=== PATIENT | female | born 1975 | race Caucasian/White ===

== ENCOUNTER → 2017-10-22 | Outpatient (CLI) | payer OTHER ==
--- NOTE | 2017-10-22 12:53 | MR ---
EXAMINATION TYPE: MR lumbar spine wo con DATE OF EXAM: 10/22/2017 COMPARISON: NONE HISTORY: Intervertebral disc displacement, history of lumbosacral disc herniation L4-L5 TECHNIQUE: Multiplanar, multisequence images of the lumbar spine were acquired. FINDINGS: Lumbar vertebral bodies maintain normal vertebral body heights and alignment. Bone marrow signal is w ithin normal limits. Conus medullaris is unremarkable terminating at L1. L1-L2: There is a right foraminal annular tear and small broad-based disc bulge without neural forami nal narrowing or spinal canal stenosis. L2-L3: There is a right eccentric broad-based disc bulge without significant neural foraminal narrowi ng or spinal canal stenosis. L3-L4: There is a far lateral left disc herniation past the lateral recess minimally narrowing the le ft neural foramen. Mild facet arthropathy and ligamentum flavum buckling is also seen. No spinal americo l stenosis or right neural foraminal narrowing. L4-L5: There is a broad-based small disc bulge and mild facet arthropathy with ligamentum flavum bain ling resulting in minimal bilateral neural foraminal narrowing. No spinal canal stenosis. L5-S1: There is a right eccentric broad-based disc bulge with mild facet arthropathy. No significant spinal canal stenosis or neural foraminal narrowing is seen. Lumbar segments are intact. No paraspinal masses are identified. Conus medullaris has a normal appe arance. IMPRESSION: 1. Far lateral left disc herniation at L3-4 minimally narrowing the left neural foramen. 2. Mild multilevel degenerative disc disease resulting in minimal bilateral neural foraminal narrowin g at L4-L5. No spinal canal stenosis throughout the lumbar spine. No disc herniation seen at this lev el on the current exam. 3. Small right foraminal annular tear at L1-L2. No spinal canal stenosis or neural foraminal narrowin g.
== END | disposition home or self-care (01) ==
LOC: RADMRIMAIN 10:55
PROVIDERS: ATTEND Physician Assistant
DX: M51.27 Other intervertebral disc displacement, lumbosacral region (principal); M51.36 Other intervertebral disc degeneration, lumbar region
CPT/HCPCS: 72148

== ENCOUNTER 2017-11-01 14:48 | Emergency (ER) | payer OTHER ==
[2017-11-01] MEDS ORDERED: LORazepam 1 MG TAB PO STA (16:10)
[2017-11-01] MEDS ORDERED: HYDROmorphone 2 MG/ML 1 ML SYRINGE IM STA (16:51)
--- NOTE | 2017-11-01 17:02 | ED ---
General Adult HPI - General Chief complaint: Psychiatric Symptoms Stated complaint: mental health Time Seen by Provider: 11/01/17 15:00 Source: patient, family, RN notes reviewed Mode of arrival: ambulatory Limitations: no limitations - History of Present Illness Initial comments: Chief complaint and history of present illness a 42-year-old female here with her . Patient reports she recently was started on Latuda several days ago. And recently stopped Cymbalta. The patient has history of bipolar disorder. Feels quite manic. Denies homicidal or suicidal thoughts. The patient has chronic painfibromyalgia. She received Toradol shot several days ago which she reports normally helps a great deal but this time it didn't. She is given 20 [place] tablets per month to be taken as needed she took one today without significant relief. - Related Data Home Medications Medication Instructions Recorded Confirmed DULoxetine HCL [Cymbalta] 60 mg PO DAILY 01/24/16 11/01/17 Lisinopril [Zestril] 40 mg PO DAILY 01/24/16 11/01/17 Acetaminophen [Tylenol Extra 1,000 mg PO Q6H PRN 11/01/17 11/01/17 Strength] Bisoprolol-Hctz 10-6.25 mg [[place] 1 tab PO DAILY 11/01/17 11/01/17 10-6.25] Cyclobenzaprine [Flexeril] 5 - 10 mg PO BID 11/01/17 11/01/17 Gabapentin [Neurontin] 600 mg PO TID 11/01/17 11/01/17 HYDROcodone/APAP 10-325MG [[place] 1 tab PO Q6H PRN 11/01/17 11/01/17 10-325] Ibuprofen [Motrin Ib] 400 mg PO Q6H PRN 11/01/17 11/01/17 Lurasidone [Latuda] 40 mg PO DAILY@1800 11/01/17 11/01/17 Allergies Allergy/AdvReac Type Severity Reaction Status Date / Time No Known Allergies Allergy Verified 09/01/16 00:48 Review of Systems ROS Statement: Those systems with pertinent positive or pertinent negative responses have been documented in the HPI. Review of systems. Patient denies any headache or visual acuity changes she has manic by her own admission. No chest pain or shortness of breath she has chronic low back pain. Denies any rashes. All systems are reviewed. Past medical problems significant for fibromyalgia, hypertension, hypothyroidism chronic back pain. Patient's surgeries include gallbladder surgery, ligation cervical fusion. The patient recently had a CAT scan of the lumbar spine and the radiologist's impression is ; lateral left disc herniation at L3-L4 minimally narrowing the left neural foramen. Mild multilevel degenerative disc disease resulting in minimal bilateral neural foraminal narrowing at L5 L4-L5. No spinal canal stenosis throughout the lumbar spine. No disc herniation seen at this level on the current exam. Small right foraminal annular tear at L1-L2. No spinal stenosis or urinary neural foraminal narrowing. As read by Dr. See DUARTE Other: All systems not noted in ROS Statement are negative. Past Medical History Past Medical History: Fibromyalgia, Hypertension, Thyroid Disorder Additional Past Medical History / Comment(s): chronic back pain, scoliosis, migraines, hypothyroidism History of Any Multi-Drug Resistant Organisms: None Reported Past Surgical History: Bladder Surgery, Orthopedic Surgery, Tubal Ligation Additional Past Surgical History / Comment(s): cerival fusion, L knee arthroscopy, colonoscopy, bladder suspension. Past Anesthesia/Blood Transfusion Reactions: No Reported Reaction Past Psychological History: Bipolar Smoking Status: Current every day smoker Past Alcohol Use History: Occasional Past Drug Use History: None Reported - Past Family History Mother Family Medical History: No Reported History Additional Family Medical History / Comment(s): Mother is healthy. Father Family Medical History: Cancer, Hypertension, Osteoarthritis (OA) Additional Family Medical History / Comment(s): Prostate cancer General Exam - General Exam Comments Initial Comments: General: The patient is awake and she is because of history of bipolar disorder and manic. Chronic low back pain. Vital signs temperature 98.6 pulse 96 respiratory rate 20 pulse ox 96% room air Eye: Pupils are equal, round and reactive to light, extra-ocular movements are intact ; there is normal conjunctiva bilaterally. No signs of icterus. Ears, nose, mouth and throat: There are moist mucous membranes and no oral lesions. Neck: The neck is supple, there is no tenderness, history of neck fusion. Cardiovascular: There is a regular rate and rhythm. No murmur, rub or gallop is appreciated. Respiratory: Lungs are clear to auscultation, respirations are non-labored, breath sounds are equal. No wheezes, stridor, rales, or rhonchi. Gastrointestinal: Abdomen soft no organomegaly. No nausea vomiting diarrhea but mild cramping. Back: Lumbosacral pain without radiation to the legs. Musculoskeletal: No pedal edema Neurological: No complaint of any focal or lateralizing findings Skin: Skin is warm and dry and no rashes or lesions are noted. Psychiatric: History of bipolar disorder. The patient complains of feeling manic. Patient states her psychiatrist told to stop the Cymbalta and start lifting to do. She is following directions. Denies suicidal or homicidal thoughts. Limitations: no limitations Course Vital Signs 11/01/17 15:12 Temperature 98.6 F Pulse Rate 96 Respiratory 20 Rate Blood Pressure 175/111 O2 Sat by Pulse 96 Oximetry Medical Decision Making - Medical Decision Making Medical decision-making. This is a 42-year-old female history of bipolar disorder. States she feels manic. She switched over from Cymbalta and to limit to do. The patient's also been on tizanidine adenitis but it causes nightmares. Patient takes [place] sparingly she is given 20 per month. She also received a shot of Toradol which normally helps but did not last several days. Patient has a follow-up with her pain management doctor and her psychiatrist coming in the next several days. The patient will received Ativan emergency room and it helped take the edge off. She'll also be given a shot of Dilaudid and taken home by her provides excellent support and care. Patient advised to follow-up tomorrow with her doctors. Disposition Clinical Impression: Chronic back pain, Bipolar affective, manic Disposition: HOME SELF-CARE Condition: Fair Instructions: Chronic Back Pain (ED), Bipolar Disorder (ED) Additional Instructions: All follow-up with your psychiatrist asked questions about Cymbalta and Latuda. Continue with medications for discomfort. Follow with pain management. Return emergency room as needed. Referrals: None,Stated [Primary Care Provider] - 1-2 days Time of Disposition: 17:02
[2017-11-01 17:11] VITALS: BP 174/92; PULSE 89; RESP 18; TEMP 97.4
== END 2017-11-01 17:11 | disposition home or self-care (01) ==
LOC: EC 14:48
DX: F31.9 Bipolar disorder, unspecified (principal); M54.9 Dorsalgia, unspecified; G89.29 Other chronic pain; M79.7 Fibromyalgia; M41.9 Scoliosis, unspecified; I10 Essential (primary) hypertension; E03.9 Hypothyroidism, unspecified; F17.200 Nicotine dependence, unspecified, uncomplicated; Z79.899 Other long term (current) drug therapy
CPT/HCPCS: 99284; 96372; 82075; J1170

== ENCOUNTER → 2017-11-30 | Outpatient (CLI) | payer OTHER ==
--- NOTE | 2017-11-30 15:44 | US ---
EXAMINATION TYPE: US pelvic complete DATE OF EXAM: 11/30/2017 COMPARISON: NONE CLINICAL HISTORY: R10.2 Pelvic pain. TECHNIQUE: . Transabdominal sonographic images of the pelvis were acquired. Transvaginal sonographi c images were medically necessary to better assess the following anatomy: Date of LMP: EXAM MEASUREMENTS: Uterus: 8.8 x 4.5 x 5.0cm Endometrial Stripe: 0.9 cm Right Ovary: 2.7 x 1.7 x 1.8 cm Left Ovary: 2.3 x 1.8 x 1.7 cm 1. Uterus: Anteverted, wnl 2. Endometrium: wnl 3. Right Ovary: wnl 4. Left Ovary: wnl 5. Bilateral Adnexa: wnl 6. Posterior cul-de-sac: wnl IMPRESSION: Unremarkable pelvic ultrasound with normal sonographic appearance of the ovaries and no e ndometrial thickening.
== END | disposition home or self-care (01) ==
LOC: RADUSWWP 14:50
PROVIDERS: ATTEND Family Medicine
DX: R10.2 Pelvic and perineal pain (principal)
CPT/HCPCS: 76856

== ENCOUNTER 2017-12-16 10:07 | Emergency (ER) | payer OTHER ==
[2017-12-16] MEDS ORDERED: ONDANSETRON 4 MG/2 ML VIAL IVP STA (10:36)
[2017-12-16] MEDS ORDERED: MORPHINE SULFATE 4 MG/ML SYRINGE IV STA (10:36)
[2017-12-16] MEDS ORDERED: SODIUM CHLORIDE 0.9% 1,000 ML IV STA (10:36)
[2017-12-16] MEDS ORDERED: MAG HYDROX/AL HYDROX/SIMETH 30 ML, HYOSCYAMINE ELIXIR 10 ML, CIMETIDINE HCL 300 MG PO STA ×3 (11:07)
--- NOTE | 2017-12-16 11:14 | ED ---
Abdominal Pain HPI - General Chief Complaint: Abdominal Pain Stated Complaint: abd pain Time Seen by Provider: 12/16/17 10:10 Source: patient, EMS, RN notes reviewed Mode of arrival: EMS Limitations: no limitations - History of Present Illness Initial Comments: This is a 42-year-old female presents emergency department via EMS with chief complaint of epigastric discomfort. Patient states that she started with nausea vomiting diarrhea last night but states the pain started primarily this morning. Patient states that never had symptoms like this in the past. Patient states that she's had multiple episodes of vomiting diarrhea denies any hematemesis, coffee-ground emesis, melena or hematochezia. Denies any dysuria hematuria. Patient states that she's had prior tubal ligation, bladder suspension. Patient had no prior cholecystectomy or appendectomy. She denies any current chest pain or shortness breath. She did admit that she had some acid reflux with the vomiting.. - Related Data Home Medications Medication Instructions Recorded Confirmed DULoxetine HCL [Cymbalta] 60 mg PO DAILY 01/24/16 11/01/17 Lisinopril [Zestril] 40 mg PO DAILY 01/24/16 11/01/17 Acetaminophen [Tylenol Extra 1,000 mg PO Q6H PRN 11/01/17 11/01/17 Strength] Bisoprolol-Hctz 10-6.25 mg [Ziac 1 tab PO DAILY 11/01/17 11/01/17 10-6.25] Cyclobenzaprine [Flexeril] 5 - 10 mg PO BID 11/01/17 11/01/17 Gabapentin [Neurontin] 600 mg PO TID 11/01/17 11/01/17 HYDROcodone/APAP 10-325MG [[place] 1 tab PO Q6H PRN 11/01/17 11/01/17 10-325] Ibuprofen [Motrin Ib] 400 mg PO Q6H PRN 11/01/17 11/01/17 Lurasidone [Latuda] 40 mg PO DAILY@1800 11/01/17 11/01/17 Previous Rx's Medication Instructions Recorded Ondansetron Odt [Zofran Odt] 4 mg PO Q8HR PRN #14 tab 12/16/17 Allergies Allergy/AdvReac Type Severity Reaction Status Date / Time No Known Allergies Allergy Verified 03/14/18 10:32 Review of Systems ROS Statement: Those systems with pertinent positive or pertinent negative responses have been documented in the HPI. ROS Other: All systems not noted in ROS Statement are negative. Past Medical History Past Medical History: Fibromyalgia, Hypertension, Thyroid Disorder Additional Past Medical History / Comment(s): chronic back pain, scoliosis, migraines, hypothyroidism History of Any Multi-Drug Resistant Organisms: None Reported Past Surgical History: Bladder Surgery, Orthopedic Surgery, Tubal Ligation Additional Past Surgical History / Comment(s): cerival fusion, L knee arthroscopy, colonoscopy, bladder suspension. Past Anesthesia/Blood Transfusion Reactions: No Reported Reaction Past Psychological History: Bipolar Smoking Status: Current every day smoker Past Alcohol Use History: Occasional Past Drug Use History: None Reported - Past Family History Mother Family Medical History: No Reported History Additional Family Medical History / Comment(s): Mother is healthy. Father Family Medical History: Cancer, Hypertension, Osteoarthritis (OA) Additional Family Medical History / Comment(s): Prostate cancer General Exam Limitations: no limitations General appearance: alert, in no apparent distress Head exam: Present: atraumatic, normocephalic, normal inspection Eye exam: Present: normal appearance, PERRL, EOMI. Absent: scleral icterus, conjunctival injection, periorbital swelling Respiratory exam: Present: normal lung sounds bilaterally. Absent: respiratory distress, wheezes, rales, rhonchi, stridor Cardiovascular Exam: Present: regular rate, normal rhythm, normal heart sounds. Absent: systolic murmur, diastolic murmur, rubs, gallop, clicks GI/Abdominal exam: Present: soft, tenderness (Mild to moderate upper abdominal tenderness with mild diffuse), normal bowel sounds. Absent: distended, guarding , rebound, rigid Back exam: Absent: CVA tenderness (R), CVA tenderness (L) Skin exam: Present: warm, dry, intact, normal color. Absent: rash Course Vital Signs 12/16/17 12/16/17 12/16/17 10:27 11:17 12:57 Temperature 98.2 F 100.1 F H Pulse Rate 102 H 103 H 99 Respiratory 18 20 18 Rate Blood Pressure 169/90 177/112 146/96 O2 Sat by Pulse 100 100 100 Oximetry Medical Decision Making - Medical Decision Making 42-year-old female presented emergency department for upper abdominal pain nausea vomiting diarrhea. Patient CT consistent with ileus. Patient's slightly improved after medications here. She'll be discharged with antiemetics and started back without codeine. She'll follow-up with her primary care physician return for any worsening symptoms. - Lab Data Result diagrams: 12/16/17 10:52 12/16/17 10:52 Lab Results 12/16/17 12/16/17 12/16/17 Range/Units 10:52 10:52 10:52 WBC 6.6 (3.8-10.6) k/uL RBC 4.47 (3.80-5.40) m/uL Hgb 13.7 (11.4-16.0) gm/dL Hct 38.7 (34.0-46.0) % MCV 86.5 (80.0-100.0) fL MCH 30.6 (25.0-35.0) pg MCHC 35.4 (31.0-37.0) g/dL RDW 12.9 (11.5-15.5) % Plt Count 359 (150-450) k/uL Neutrophils % 83 % Lymphocytes % 10 % Monocytes % 5 % Eosinophils % 1 % Basophils % 0 % Neutrophils # 5.4 (1.3-7.7) k/uL Lymphocytes # 0.7 L (1.0-4.8) k/uL Monocytes # 0.3 (0-1.0) k/uL Eosinophils # 0.1 (0-0.7) k/uL Basophils # 0.0 (0-0.2) k/uL Sodium 140 (137-145) mmol/L Potassium 3.8 (3.5-5.1) mmol/L Chloride 109 H (98-107) mmol/L Carbon Dioxide 20 L (22-30) mmol/L Anion Gap 11 mmol/L BUN 19 H (7-17) mg/dL Creatinine 0.73 (0.52-1.04) mg/dL Est GFR (CKD-EPI)AfAm >90 (>60 ml/min/1.73 sqM) Est GFR (CKD-EPI)NonAf >90 (>60 ml/min/1.73 sqM) Glucose 104 H (74-99) mg/dL Plasma Lactic Acid Jesus 1.6 (0.7-2.0) mmol/L Calcium 8.6 (8.4-10.2) mg/dL Total Bilirubin 0.5 (0.2-1.3) mg/dL AST 15 (14-36) U/L ALT 20 (9-52) U/L Alkaline Phosphatase 54 (38-126) U/L Total Protein 6.2 L (6.3-8.2) g/dL Albumin 3.7 (3.5-5.0) g/dL Amylase 40 (30-110) U/L Lipase 67 (23-300) U/L Urine Color Urine Appearance (Clear) Urine pH (5.0-8.0) Ur Specific [place] (1.001-1.035) Urine Protein (Negative) Urine Glucose (UA) (Negative) Urine Ketones (Negative) Urine Blood (Negative) Urine Nitrite (Negative) Urine Bilirubin (Negative) Urine Urobilinogen (<2.0) mg/dL Ur Leukocyte Esterase (Negative) 12/16/17 Range/Units 10:52 WBC (3.8-10.6) k/uL RBC (3.80-5.40) m/uL Hgb (11.4-16.0) gm/dL Hct (34.0-46.0) % MCV (80.0-100.0) fL MCH (25.0-35.0) pg MCHC (31.0-37.0) g/dL RDW (11.5-15.5) % Plt Count (150-450) k/uL Neutrophils % % Lymphocytes % % Monocytes % % Eosinophils % % Basophils % % Neutrophils # (1.3-7.7) k/uL Lymphocytes # (1.0-4.8) k/uL Monocytes # (0-1.0) k/uL Eosinophils # (0-0.7) k/uL Basophils # (0-0.2) k/uL Sodium (137-145) mmol/L Potassium (3.5-5.1) mmol/L Chloride (98-107) mmol/L Carbon Dioxide (22-30) mmol/L Anion Gap mmol/L BUN (7-17) mg/dL Creatinine (0.52-1.04) mg/dL Est GFR (CKD-EPI)AfAm (>60 ml/min/1.73 sqM) Est GFR (CKD-EPI)NonAf (>60 ml/min/1.73 sqM) Glucose (74-99) mg/dL Plasma Lactic Acid Jesus (0.7-2.0) mmol/L Calcium (8.4-10.2) mg/dL Total Bilirubin (0.2-1.3) mg/dL AST (14-36) U/L ALT (9-52) U/L Alkaline Phosphatase (38-126) U/L Total Protein (6.3-8.2) g/dL Albumin (3.5-5.0) g/dL Amylase (30-110) U/L Lipase (23-300) U/L Urine Color Yellow Urine Appearance Clear (Clear) Urine pH 5.5 (5.0-8.0) Ur Specific [place] 1.026 (1.001-1.035) Urine Protein Trace H (Negative) Urine Glucose (UA) Negative (Negative) Urine Ketones Negative (Negative) Urine Blood Negative (Negative) Urine Nitrite Negative (Negative) Urine Bilirubin Negative (Negative) Urine Urobilinogen <2.0 (<2.0) mg/dL Ur Leukocyte Esterase Negative (Negative) Disposition Clinical Impression: Abdominal pain, Ileus Disposition: HOME SELF-CARE Condition: Stable Instructions: Abdominal Pain (ED) Additional Instructions: Please return to the Emergency Department if symptoms worsen or any other concerns. Prescriptions: Ondansetron Odt [Zofran Odt] 4 mg PO Q8HR PRN #14 tab PRN Reason: Nausea Referrals: Rebeca Chavira DO [Primary Care Provider] - 1-2 days Time of Disposition: 13:11
[2017-12-16 11:18] LABS: Appearance,Urine Clear (Clear); Bilirubin,Urine Negative (Negative); Blood,Urine Negative (Negative); Color,Urine Yellow; Glucose,Urine (UA) Negative (Negative); Ketones,Urine Negative (Negative); Leukocyte Esterase,Urine Negative (Negative); Nitrite,Urine Negative (Negative); PH, Urine 5.5 (5.0-8.0); Protein,Urine Trace (Negative); Specific Gravity,Urine 1.026 (1.001-1.035); Urobilinogen,Urine <2.0 mg/dL (<2.0)
[2017-12-16 11:23] LABS: ALT 20 U/L (9-52); AST 15 U/L (14-36); Albumin 3.7 g/dL (3.5-5.0); Alkaline Phosphatase 54 U/L (38-126); Amylase 40 U/L (30-110); Anion Gap 11 mmol/L; Blood Urea Nitrogen 19 mg/dL (7-17); Calcium 8.6 mg/dL (8.4-10.2); Carbon Dioxide 20 mmol/L (22-30); Chloride 109 mmol/L (98-107); Glucose 104 mg/dL (74-99); Lipase 67 U/L (23-300); Potassium 3.8 mmol/L (3.5-5.1); Sodium 140 mmol/L (137-145); Total Bilirubin 0.5 mg/dL (0.2-1.3); Total Protein 6.2 g/dL (6.3-8.2)
[2017-12-16 11:36] LABS: Basophils % (A) 0 %; Eosinophils # (A) 0.1 k/uL (0-0.7); Eosinophils % (A) 1 %; HCT 38.7 % (34.0-46.0); HGB 13.7 gm/dL (11.4-16.0); Lymphocytes # (A) 0.7 k/uL (1.0-4.8); Lymphocytes % (A) 10 %; MCH 30.6 pg (25.0-35.0); MCHC 35.4 g/dL (31.0-37.0); MCV 86.5 fL (80.0-100.0); Mean Platelet Volume 7.7; Monocytes # (A) 0.3 k/uL (0-1.0); Monocytes % (A) 5 %; Neutrophils # (A) 5.4 k/uL (1.3-7.7); Neutrophils % (A) 83 %; Platelet Count 359 k/uL (150-450); RBC 4.47 m/uL (3.80-5.40); RDW 12.9 % (11.5-15.5); WBC 6.6 k/uL (3.8-10.6)
[2017-12-16] MEDS ORDERED: RX INFO: IV CONTRAST WAS GIVEN 1 EACH MISC MISCELLANE PRN (11:37)
--- NOTE | 2017-12-16 12:42 | CT ---
EXAMINATION TYPE: CT abdomen pelvis w con DATE OF EXAM: 12/16/2017 COMPARISON: NONE INDICATION: ab pain/epigastric pain DLP: 1627.80 mGycm, Automated exposure control for dose reduction was used. CONTRAST: 100 mL of Omnipaque 300. Study performed without Oral Contrast TECHNIQUE: Axial images were obtained from above the diaphragm to the pubic rami in the axial plane a t 5 mm thick sections. Reconstructed images are reviewed on the computer in the coronal plane. FINDINGS: Limited CT sections are obtained the lung bases. The lung bases are clear. CT ABDOMEN: Normal Liver: Spleen: Normal Pancreas: Normal Adrenal glands: The adrenal glands are normal. Gallbladder: Normal Kidneys: No masses are evident. No hydronephrosis is present. No cysts are present. Delayed images were obtained through the kidneys, which remain unremarkable. Aorta: Normal Inferior vena cava: Normal. CT PELVIS: Loops of bowel within the abdomen and pelvis are normal. Study is without oral contrast limiting their evaluation. There are some fluid-filled small bowel loops the upper limits of normal for size. Some mild ileus may be present. Appendix: Normal as visualized. Urinary bladder: Normal. Genitourinary structures: Uterus appears normal. Adnexal regions are clear. No free fluid is within t he pelvis. Osseous structures: No suspicious lytic or sclerotic lesions. IMPRESSIONS: 1. There may be some mild ileus present. No obstruction is evident. 2. Otherwise unremarkable CT abdomen and pelvis
[2017-12-16 12:58] VITALS: BP 146/96; PULSE 99; RESP 18; TEMP 100.1
[2017-12-16] MEDS ORDERED: METOCLOPRAMIDE 5 MG/ML 2 ML VIAL IVP STA (13:10)
[2017-12-16] MEDS ORDERED: KETOROLAC 30 MG/ML 1 ML VIAL IVP STA (13:10)
[2017-12-16] MEDS ORDERED: ACET/COD 300 MG/30 MG STARTER PACK 6 TAB BTL PO STA (13:11)
== END 2017-12-16 13:26 | disposition home or self-care (01) ==
LOC: EC 10:07
DX: K56.7 Ileus, unspecified (principal); R19.7 Diarrhea, unspecified; F31.9 Bipolar disorder, unspecified; I10 Essential (primary) hypertension; M79.7 Fibromyalgia; G89.29 Other chronic pain; F17.200 Nicotine dependence, unspecified, uncomplicated; Z79.899 Other long term (current) drug therapy; Z98.51 Tubal ligation status; Z98.890 Other specified postprocedural states
CPT/HCPCS: 36415; 80053; 82150; 83605; 83690; 85025; 81003; 74177; 99285; 96374; 96375 ×3; 96361 ×2; J2270; J2765; J2405; J1885; Q9967

== ENCOUNTER 2018-03-20 11:04 | Emergency (ER) | payer OTHER ==
[2018-03-20 11:12] VITALS: RESP 18
[2018-03-20] MEDS ORDERED: METOCLOPRAMIDE 5 MG/ML 2 ML VIAL IVP STA (11:30)
[2018-03-20] MEDS ORDERED: diphenhydrAMINE 50 MG/ML 1 ML VIAL IVP STA (11:30)
[2018-03-20] MEDS ORDERED: SODIUM CHLORIDE 0.9% 1,000 ML IV STA (11:30)
[2018-03-20] MEDS ORDERED: KETOROLAC 30 MG/ML 1 ML VIAL IVP STA (11:30)
--- NOTE | 2018-03-20 11:35 | ED ---
General Adult HPI - General Chief complaint: Headache Stated complaint: MIGRAINE Time Seen by Provider: 03/20/18 11:21 Source: patient, RN notes reviewed Mode of arrival: wheelchair Limitations: no limitations - History of Present Illness Initial comments: Patient 42-year-old female significant past medical history migraines, presents to the emergency room today with chief complaint of a migraine headache. Patient states that she began feeling symptoms late last night approximately 7 PM. Admits to photosensitivity. Admits that she sensitive to sounds. Does admit to nausea. Patient states all symptoms are consistent migraines is 7 past urgency denies any other complaints or symptoms at this time. Patient denies any recent fever, chills, shortness of breath, chest pain, back pain, abdominal pain, vomiting, numbness or tingling, dysuria or hematuria, constipation or diarrhea, visual changes, or any other complaints. - Related Data Home Medications Medication Instructions Recorded Confirmed DULoxetine HCL [Cymbalta] 60 mg PO DAILY 01/24/16 11/01/17 Lisinopril [Zestril] 40 mg PO DAILY 01/24/16 11/01/17 Acetaminophen [Tylenol Extra 1,000 mg PO Q6H PRN 11/01/17 11/01/17 Strength] Bisoprolol-Hctz 10-6.25 mg [[place] 1 tab PO DAILY 11/01/17 11/01/17 10-6.25] Cyclobenzaprine [Flexeril] 5 - 10 mg PO BID 11/01/17 11/01/17 Gabapentin [Neurontin] 600 mg PO TID 11/01/17 11/01/17 HYDROcodone/APAP 10-325MG [[place] 1 tab PO Q6H PRN 11/01/17 11/01/17 10-325] Ibuprofen [Motrin Ib] 400 mg PO Q6H PRN 11/01/17 11/01/17 Lurasidone [Latuda] 40 mg PO DAILY@1800 11/01/17 11/01/17 Previous Rx's Medication Instructions Recorded Ondansetron Odt [Zofran Odt] 4 mg PO Q8HR PRN #14 tab 12/16/17 Cyclobenzaprine [Flexeril] 10 mg PO TID #20 tab 03/20/18 Allergies Allergy/AdvReac Type Severity Reaction Status Date / Time No Known Allergies Allergy Verified 03/20/18 11:12 Review of Systems ROS Statement: Those systems with pertinent positive or pertinent negative responses have been documented in the HPI. ROS Other: All systems not noted in ROS Statement are negative. Past Medical History Past Medical History: Fibromyalgia, Hypertension, Thyroid Disorder Additional Past Medical History / Comment(s): chronic back pain, scoliosis, migraines, hypothyroidism History of Any Multi-Drug Resistant Organisms: None Reported Past Surgical History: Bladder Surgery, Orthopedic Surgery, Tubal Ligation Additional Past Surgical History / Comment(s): cerival fusion, L knee arthroscopy, colonoscopy, bladder suspension, nerve ending surgery Past Anesthesia/Blood Transfusion Reactions: No Reported Reaction Past Psychological History: Bipolar Smoking Status: Current every day smoker Past Alcohol Use History: Occasional Past Drug Use History: None Reported - Past Family History Mother Family Medical History: No Reported History Additional Family Medical History / Comment(s): Mother is healthy. Father Family Medical History: Cancer, Hypertension, Osteoarthritis (OA) Additional Family Medical History / Comment(s): Prostate cancer General Exam - General Exam Comments Initial Comments: General: The patient is awake and alert, in no distress, and does not appear acutely ill. Eye: Pupils are equal, round and reactive to light, extra-ocular movements are intact. No nystagmus. There is normal conjunctiva bilaterally. No signs of icterus. Ears, nose, mouth and throat: There are moist mucous membranes and no oral lesions. Neck: The neck is supple, there is no tenderness or JVD. Cardiovascular: There is a regular rate and rhythm. No murmur, rub or gallop is appreciated. Respiratory: Lungs are clear to auscultation, respirations are non-labored, breath sounds are equal. No wheezes, stridor, rales, or rhonchi. Musculoskeletal: Normal ROM, no tenderness. Strength 5/5. Sensation intact. Pulses equal bilaterally 2+. Neurological: A&O x 3. CN II-XII intact, There are no obvious motor or sensory deficits. Coordination appears grossly intact. Speech is normal. Skin: Skin is warm and dry and no rashes or lesions are noted. Psychiatric: Cooperative, appropriate mood & affect, normal judgment. Limitations: no limitations Course Vital Signs 03/20/18 11:10 Temperature 98.4 F Pulse Rate 67 Respiratory 18 Rate Blood Pressure 148/95 O2 Sat by Pulse 98 Oximetry Medical Decision Making - Medical Decision Making Patient reexamined at this time shows no signs of distress. Patient does admit that headache is feeling much better here in the emergency room. She does admit to a history of cervical fusion. Patient requesting muscle relaxant. Patient will be discharged home with prescription for Flexeril which she states she has had in the past. Advised to follow-up family doctor return if any symptoms increase or worsen. Disposition Clinical Impression: Migraine Disposition: HOME SELF-CARE Condition: Good Instructions: Migraine Headache (ED) Additional Instructions: Please use medication as discussed. Please follow-up with family doctor in the next 2 days of symptoms have not improved. Please return to emergency room if the symptoms increase or worsen or for any other concerns. Prescriptions: Cyclobenzaprine [Flexeril] 10 mg PO TID #20 tab Is patient prescribed a controlled substance at d/c from ED?: No Referrals: Rebeca Chavira DO [Primary Care Provider] - 1-2 days Time of Disposition: 12:30
[2018-03-20 12:58] VITALS: BP 136/75; PULSE 70; TEMP 98.3
== END 2018-03-20 12:45 | disposition home or self-care (01) ==
LOC: EC 11:04
DX: G43.909 Migraine, unspecified, not intractable, without status migrainosus (principal); M43.22 Fusion of spine, cervical region; M79.7 Fibromyalgia; I10 Essential (primary) hypertension; F31.9 Bipolar disorder, unspecified; F17.200 Nicotine dependence, unspecified, uncomplicated; Z79.899 Other long term (current) drug therapy
CPT/HCPCS: 99283; 96374; 96375 ×2; 96361; J1200; J2765; J1885

== ENCOUNTER 2018-07-15 08:03 | Day surgery (SDC) | payer OTHER ==
[2018-07-13 12:50] VITALS: BMI 26.6
[~2018-07-15 08:03] MED LIST: LACTATED RINGERS 1,000 ML IV SCH
[2018-07-15 08:35] VITALS: RESP 16; TEMP 98.6
[2018-07-15] MEDS ORDERED: LIDOCAINE 1% 20 ML VIAL (10MG/ML) FOR IV START INTRADERMA ONE (08:44)
[2018-07-15] MEDS ORDERED: PROPOFOL 10 MG/ML 20 ML VIAL IV ONE (08:47)
[2018-07-15] MEDS ORDERED: fentaNYL (PF) 50 MCG/ML 2 ML AMP ONE (08:47)
[2018-07-15] MEDS ORDERED: LIDOCAINE 1% INJ 10MG/ML (20 ML MDV) ONE (08:47)
--- NOTE | 2018-07-15 08:52 | P.GSHP ---
History of Present Illness H&P Date: 07/15/18 Chief Complaint: Diarrhea, history of colitis Is a 40-year-old female referred from Dr. Rebeca Chavira. Patient has had a previous history of colitis. She's had complaints of abdominal pain and some intermittent diarrhea. Patient states that she has pain during intercourse. Grasping the right left lower quadrants. Past Medical History Past Medical History: Fibromyalgia, Hypertension, Osteoarthritis (OA) Additional Past Medical History / Comment(s): chronic back pain, scoliosis, migraines, colitis, History of Any Multi-Drug Resistant Organisms: None Reported Past Surgical History: Bladder Surgery, Orthopedic Surgery, Tubal Ligation Additional Past Surgical History / Comment(s): cervical fusion, Lt knee arthroscopy, colonoscopy, bladder suspension, lower back nerve ending surgery Past Anesthesia/Blood Transfusion Reactions: Family History of Problems w/ Anesthesia Additional Past Anesthesia/Blood Transfusion Reaction / Comment(s): father has PONV Smoking Status: Former smoker - Past Family History Mother Family Medical History: No Reported History Additional Family Medical History / Comment(s): Mother is healthy. Father Family Medical History: Cancer Additional Family Medical History / Comment(s): Prostate cancer Medications and Allergies Home Medications Medication Instructions Recorded Confirmed Type Lisinopril [Zestril] 40 mg PO DAILY 01/24/16 07/15/18 History Gabapentin [Neurontin] 600 mg PO TID 11/01/17 07/15/18 History HYDROcodone/APAP 10-325MG [[place] 1 tab PO Q6H PRN 11/01/17 07/15/18 History 10-325] Baclofen [Lioresal] 20 mg PO DAILY 07/13/18 07/15/18 History Cyclobenzaprine [Flexeril] 10 mg PO TID PRN 07/13/18 07/15/18 History QUEtiapine XR [SEROquel XR] 150 mg PO HS 07/13/18 07/15/18 History Topiramate [Topamax] 100 mg PO DAILY 07/13/18 07/15/18 History Allergies Allergy/AdvReac Type Severity Reaction Status Date / Time No Known Allergies Allergy Verified 07/15/18 08:36 Surgical - Exam Vital Signs Temp Pulse Resp BP Pulse Ox 98.6 F 90 16 129/86 99 07/15/18 08:34 07/15/18 08:34 07/15/18 08:34 07/15/18 08:34 07/15/18 08:34 - General well developed, well nourished, no distress - Eyes PERRL - ENT normal pinna - Neck no masses - Respiratory normal expansion - Cardiovascular Rhythm: regular - Abdomen Abdomen: soft, non tender - Genitourinary normal external genitalia Assessment and Plan Assessment: Diarrhea History of colitis We'll perform colonoscopy.
--- NOTE | 2018-07-15 09:06 | P.OP ---
Date of Procedure: 07/15/18 Preoperative Diagnosis: Colitis Postoperative Diagnosis: Diverticulosis Procedure(s) Performed: Colonoscopy Anesthesia: MAC Surgeon: Shadi Melo Pathology: none sent Condition: stable Disposition: PACU Description of Procedure: The patient's placed on the endoscopy table in the lateral position. She received IV sedation. Digital rectal exam was performed which revealed no abnormalities. Flexible colonoscope was then placed patient anus passed throughout the entire colon. The ileocecal valve was visualized. The cecum, ascending and transverse colon appeared normal. In the descending and sigmoid colon there was mild diverticular changes. There is no evidence of diverticulitis. Scope was then brought back the rectum and this appeared normal. Scope was withdrawn for patient.
[2018-07-15 09:35] VITALS: BP 152/100; PULSE 64
== END 2018-07-15 10:05 | disposition home or self-care (01) ==
LOC: ORWHC2ENDO 08:03
PROVIDERS: ATTEND Surgery
DX: K57.30 Diverticulosis of large intestine without perforation or abscess without bleeding (principal); K52.9 Noninfective gastroenteritis and colitis, unspecified; G89.29 Other chronic pain; I10 Essential (primary) hypertension; M19.90 Unspecified osteoarthritis, unspecified site; G43.909 Migraine, unspecified, not intractable, without status migrainosus; M79.7 Fibromyalgia; Z87.891 Personal history of nicotine dependence; Z79.899 Other long term (current) drug therapy; Z79.891 Long term (current) use of opiate analgesic; Z98.1 Arthrodesis status
CPT/HCPCS: 81025; 45378; J2001; J3010; J2704

== ENCOUNTER 2018-08-01 10:16 | Emergency (ER) | payer OTHER ==
[2018-08-01] MEDS ORDERED: SODIUM CHLORIDE 0.9% 1,000 ML IV STA ×2 (10:47)
[2018-08-01] MEDS ORDERED: METOCLOPRAMIDE 5 MG/ML 2 ML VIAL IVP STA (10:47)
[2018-08-01] MEDS ORDERED: KETOROLAC 30 MG/ML 1 ML VIAL IVP STA (10:47)
[2018-08-01] MEDS ORDERED: ORPHENADRINE 30 MG/ML 2 ML VIAL IVP STA (10:47)
[2018-08-01] MEDS ORDERED: ONDANSETRON ODT 4 MG TAB PO STA (10:47)
[2018-08-01] MEDS ORDERED: methylPREDNISolone SOD SUCCI 125 MG/2 ML VIAL IV STA (10:48)
--- NOTE | 2018-08-01 10:50 | ED ---
Neck Injury/Pain HPI - General Chief Complaint: Neck Pain/Injury Stated Complaint: Neck pain Time Seen by Provider: 08/01/18 10:30 Source: RN notes reviewed, old records reviewed Mode of arrival: ambulatory Limitations: no limitations - History of Present Illness Initial Comments: Patient is a 43-year-old female presents referred to complain of neck pain and right-sided sciatica pain. Patient states that she's been having the symptoms including muscle tightness in her neck for the past 3 days. Patient reports pain is worse with range of motion. She denies any other complaints at this time. Patient javi saddle anesthesia, she denies any other compaints. - Related Data Home Medications Medication Instructions Recorded Confirmed Lisinopril [Zestril] 40 mg PO DAILY 01/24/16 07/15/18 Gabapentin [Neurontin] 600 mg PO TID 11/01/17 07/15/18 HYDROcodone/APAP 10-325MG [[place] 1 tab PO Q6H PRN 11/01/17 07/15/18 10-325] Baclofen [Lioresal] 20 mg PO DAILY 07/13/18 07/15/18 Cyclobenzaprine [Flexeril] 10 mg PO TID PRN 07/13/18 07/15/18 QUEtiapine XR [SEROquel XR] 150 mg PO HS 07/13/18 07/15/18 Topiramate [Topamax] 100 mg PO DAILY 07/13/18 07/15/18 Previous Rx's Medication Instructions Recorded predniSONE 10 mg PO DAILY #15 tab 08/01/18 Allergies Allergy/AdvReac Type Severity Reaction Status Date / Time No Known Allergies Allergy Verified 08/01/18 10:25 Review of Systems ROS Statement: Those systems with pertinent positive or pertinent negative responses have been documented in the HPI. ROS Other: All systems not noted in ROS Statement are negative. Past Medical History Past Medical History: Fibromyalgia, Hypertension, Osteoarthritis (OA) Additional Past Medical History / Comment(s): chronic back pain, scoliosis, migraines, colitis, History of Any Multi-Drug Resistant Organisms: None Reported Past Surgical History: Bladder Surgery, Orthopedic Surgery, Tubal Ligation Additional Past Surgical History / Comment(s): cervical fusion, Lt knee arthroscopy, colonoscopy, bladder suspension, lower back nerve ending surgery Past Anesthesia/Blood Transfusion Reactions: Family History of Problems w/ Anesthesia Additional Past Anesthesia/Blood Transfusion Reaction / Comment(s): father has PONV Past Psychological History: Bipolar Smoking Status: Former smoker - Past Family History Mother Family Medical History: No Reported History Additional Family Medical History / Comment(s): Mother is healthy. Father Family Medical History: Cancer Additional Family Medical History / Comment(s): Prostate cancer General Exam - General Exam Comments Initial Comments: Well appearing 43 year old female, no dsitress. Limitations: no limitations General appearance: alert, in no apparent distress Head exam: Present: atraumatic, normocephalic, normal inspection Eye exam: Present: normal appearance, PERRL, EOMI. Absent: scleral icterus, conjunctival injection, periorbital swelling ENT exam: Present: normal exam Neck exam: Present: normal inspection, tenderness (L paraspinsal cervical muscle ). Absent: meningismus, lymphadenopathy Respiratory exam: Present: normal lung sounds bilaterally. Absent: respiratory distress, wheezes, rales, rhonchi, stridor Cardiovascular Exam: Present: regular rate, normal rhythm, normal heart sounds. Absent: systolic murmur, diastolic murmur, rubs, gallop, clicks Extremities exam: Present: normal inspection, full ROM, normal capillary refill. Absent: tenderness, pedal edema, joint swelling, calf tenderness Back exam: Present: normal inspection Neurological exam: Present: alert, oriented X3, CN II-XII intact Psychiatric exam: Present: normal affect, normal mood Skin exam: Present: warm, dry, intact, normal color. Absent: rash Course Vital Signs 08/01/18 08/01/18 10:21 12:47 Temperature 98.1 F 98.3 F Pulse Rate 64 77 Respiratory 16 18 Rate Blood Pressure 132/88 123/77 O2 Sat by Pulse 100 98 Oximetry Medical Decision Making - Medical Decision Making Patient is a 43 year old female with CC of neck pain and R sciatica pain. History of chronic pain, fibromyalgia, and bipolar. She reports she ahd a recent manic episode which triggers her fibromyalgia to kick in. She has no neuroloig aldeficts, she has full strength and RO< of lower ectremities and arms. She was given IV fluid sna migraine cocktail ans she did later complain of a migraine as well. She reports her headache diminished and was still in total body pain. She takes norco at home, given one norco here. Discussed that patient should havve follow up with PCP and her neruologiest and pain specialist. Discussed return parameters. - Radiology Data Radiology results: report reviewed Status post ACDF from C5 to C7. X-rays negative for any acute osseous lesion. There is mild degenerative changes. Disposition Clinical Impression: Sciatica, Cervical paraspinal muscle spasm Disposition: HOME SELF-CARE Condition: Good Instructions: Cervical Strain (ED) Additional Instructions: Patient advised to have follow-up with primary care physician. Continue previously prescribed pain medication and gabapentin. He can have the steroids as well as integumentary medication. Return to emergency department if any alarming signs or symptoms occur. Prescriptions: predniSONE 10 mg PO DAILY #15 tab Is patient prescribed a controlled substance at d/c from ED?: No Referrals: Rebeca Chavira DO [Primary Care Provider] - 1-2 days Time of Disposition: 12:21
--- NOTE | 2018-08-01 11:34 | XR ---
EXAMINATION TYPE: XR cervical spine limited , 3 VIEWS DATE OF EXAM ORDERED: 08/01/2018 HISTORY: Pain. COMPARISON: None. FINDINGS: There has been a previous ACDF from C5 to C7 with spacer placement. Alignment remains norm al. Atlantoaxial relationships are normal. Prevertebral soft tissues are normal. IMPRESSION: STATUS POST ACDF FROM C5 TO C7.
--- NOTE | 2018-08-01 11:34 | XR ---
EXAMINATION TYPE: XR lumbar spine 2 or 3V , 3 VIEWS DATE OF EXAM ORDERED: 08/01/2018 HISTORY: Pain. COMPARISON: Previous study dated 09/01/2016. FINDINGS: There is a mild dextroscoliosis. Vertebral body height and alignment are maintained. There is no spondylolysis or spondylolisthesis. N o fractures are seen. The pedicles are intact. There is mild facet disease in the L5-S1 facets. IMPRESSION: 1. NO ACUTE OSSEOUS LESION. 2. MILD DEGENERATIVE CHANGE.
[2018-08-01] MEDS ORDERED: diphenhydrAMINE 50 MG/ML 1 ML VIAL IVP STA (12:27)
[2018-08-01] MEDS ORDERED: HYDROcodone/APAP 10-325MG 1 EACH TAB PO ONE (12:27)
[2018-08-01 12:48] VITALS: BP 123/77; PULSE 77; RESP 18; TEMP 98.3
== END 2018-08-01 12:58 | disposition home or self-care (01) ==
LOC: EC 10:16
DX: M54.31 Sciatica, right side (principal); M62.838 Other muscle spasm; G43.909 Migraine, unspecified, not intractable, without status migrainosus; M79.7 Fibromyalgia; I10 Essential (primary) hypertension; M41.9 Scoliosis, unspecified; F31.9 Bipolar disorder, unspecified; Z87.891 Personal history of nicotine dependence; Z98.1 Arthrodesis status; Z79.899 Other long term (current) drug therapy
CPT/HCPCS: 72040; 72100; 99284; 96374; 96375 ×4; 96361; J1200; J2360; J2765; J2930; J1885

== ENCOUNTER → 2018-12-09 | Outpatient (CLI) | payer OTHER | END | disposition home or self-care (01) | LOC: LABWHC1 15:03 | PROVIDERS: ATTEND Anesthesiology | DX: Z01.818 Encounter for other preprocedural examination (principal) | CPT/HCPCS: 36415; 93005 ==

== ENCOUNTER 2019-06-02 17:03 | Emergency (ER) | payer OTHER ==
[2019-06-02 17:08] VITALS: RESP 18
[2019-06-02] MEDS ORDERED: DEXAMETHASONE SOD PHOSPHATE 10 MG/ML 1 ML VIAL IV STA (17:25)
[2019-06-02] MEDS ORDERED: METOCLOPRAMIDE 5 MG/ML 2 ML VIAL IVP STA (17:25)
[2019-06-02] MEDS ORDERED: diphenhydrAMINE 50 MG/ML 1 ML VIAL IVP STA (17:25)
[2019-06-02] MEDS ORDERED: KETOROLAC 30 MG/ML 1 ML VIAL IVP STA (17:25)
[2019-06-02] MEDS ORDERED: DIAZEPAM 5 MG/ML 2 ML INJ IVP STA (18:38)
--- NOTE | 2019-06-02 18:39 | ED ---
Headache HPI - General Chief Complaint: Headache Stated Complaint: Headache Time Seen by Provider: 06/02/19 17:12 Mode of arrival: ambulatory Limitations: no limitations - History of Present Illness Initial Comments: 43-year-old female patient with past medical history significant for migraine headache presents to the emergency department today for evaluation of migraine headache. Patient's that she's had a headache for the last 2 days. States with this she is experiencing light sensitivity, sound sensitivity, and nausea. Denies any vomiting. States the pain is located in the right side of her head especially behind the right eye. Patient states symptoms are consistent with her usual migraine pattern. States she has taken Excedrin Migraine without relief of symptoms. She denies this being the worse headache of her life. Patient denies any recent rash, fever, chills, shortness breath, chest pain, abdominal pain, diarrhea, constipation, back pain, hematuria, dysuria, urinary urgency, urinary frequency, or any other complaints. - Related Data Home Medications Medication Instructions Recorded Confirmed Lisinopril [Zestril] 40 mg PO DAILY 01/24/16 07/15/18 Gabapentin [Neurontin] 600 mg PO TID 11/01/17 07/15/18 HYDROcodone/APAP 10-325MG [[place] 1 tab PO Q6H PRN 11/01/17 07/15/18 10-325] Baclofen [Lioresal] 20 mg PO DAILY 07/13/18 07/15/18 Cyclobenzaprine [Flexeril] 10 mg PO TID PRN 07/13/18 07/15/18 QUEtiapine XR [SEROquel XR] 150 mg PO HS 07/13/18 07/15/18 Topiramate [Topamax] 100 mg PO DAILY 07/13/18 07/15/18 Previous Rx's Medication Instructions Recorded predniSONE 10 mg PO DAILY #15 tab 08/01/18 Allergies Allergy/AdvReac Type Severity Reaction Status Date / Time No Known Allergies Allergy Verified 06/02/19 17:06 Review of Systems ROS Statement: Those systems with pertinent positive or pertinent negative responses have been documented in the HPI. ROS Other: All systems not noted in ROS Statement are negative. Past Medical History Past Medical History: Fibromyalgia, Hypertension, Osteoarthritis (OA) Additional Past Medical History / Comment(s): chronic back pain, scoliosis, migraines, colitis, History of Any Multi-Drug Resistant Organisms: None Reported Past Surgical History: Bladder Surgery, Orthopedic Surgery, Tubal Ligation Additional Past Surgical History / Comment(s): cervical fusion, Lt knee arthroscopy, colonoscopy, bladder suspension, lower back nerve ending surgery Past Anesthesia/Blood Transfusion Reactions: Family History of Problems w/ Anesthesia Additional Past Anesthesia/Blood Transfusion Reaction / Comment(s): father has PONV Past Psychological History: Bipolar Smoking Status: Former smoker Past Alcohol Use History: Occasional Past Drug Use History: None Reported - Past Family History Mother Family Medical History: No Reported History Additional Family Medical History / Comment(s): Mother is healthy. Father Family Medical History: Cancer Additional Family Medical History / Comment(s): Prostate cancer General Exam Limitations: no limitations General appearance: alert, in no apparent distress, other (This is a well-developed, well-nourished adult female patient in no acute distress. Vital signs upon presentation are temperature 98.9F, pulse 83, respirations 18, blood pressure 190/125, pulse ox 100% on room air.) Eye exam: Present: normal appearance, PERRL, EOMI. Absent: scleral icterus, conjunctival injection, periorbital swelling ENT exam: Present: normal exam, normal oropharynx, mucous membranes moist Respiratory exam: Present: normal lung sounds bilaterally. Absent: respiratory distress, wheezes, rales, rhonchi, stridor Cardiovascular Exam: Present: regular rate, normal rhythm, normal heart sounds. Absent: systolic murmur, diastolic murmur, rubs, gallop, clicks Neurological exam: Present: alert, oriented X3, CN II-XII intact, other (Strength in all 4 extremities is 5/5.) Psychiatric exam: Present: normal affect, normal mood Skin exam: Present: warm, dry, intact, normal color. Absent: rash Course Vital Signs 06/02/19 06/02/19 17:05 18:54 Temperature 98.9 F 98.2 F Pulse Rate 83 89 Respiratory 18 18 Rate Blood Pressure 190/125 168/88 O2 Sat by Pulse 100 97 Oximetry Medical Decision Making - Medical Decision Making 43-year-old female patient presents to the emergency department today for evaluation of migraine headache. Symptoms are consistent with her usual migraine pattern. She denies new symptoms. Denies being the worse headache of her life. Physical examination is unremarkable. She is neurologically intact with no focal deficits. Patient was given medication through the IV. Upon ree valuation she does report improvement of symptoms. She is currently rating her pain as 3 out of 10 on the pain scale. Patient does have comfortable being discharged home at this time. She'll be discharged to follow-up with her primary care physician for recheck in 1-2 days. Return parameters were discussed in detail. She verbalizes understanding and agrees this plan. Disposition Clinical Impression: Migraine headache Disposition: HOME SELF-CARE Condition: Good Instructions (If sedation given, give patient instructions): Migraine Headache (ED) Additional Instructions: Rest. Increase fluids. Follow-up with your primary care physician for recheck in 1-2 days. Return to the emergency department immediately for any new, worsening, or concerning symptoms. Is patient prescribed a controlled substance at d/c from ED?: No Referrals: Herman Coppola MD [Primary Care Provider] - 1-2 days Time of Disposition: 18:38
[2019-06-02 18:55] VITALS: BP 168/88; PULSE 89; TEMP 98.2
== END 2019-06-02 19:08 | disposition home or self-care (01) ==
LOC: EC 17:03
DX: G43.909 Migraine, unspecified, not intractable, without status migrainosus (principal); I10 Essential (primary) hypertension; M79.7 Fibromyalgia; M19.90 Unspecified osteoarthritis, unspecified site; F31.9 Bipolar disorder, unspecified; G89.29 Other chronic pain; M54.9 Dorsalgia, unspecified; Z79.899 Other long term (current) drug therapy; Z98.1 Arthrodesis status; Z98.890 Other specified postprocedural states; Z87.891 Personal history of nicotine dependence
CPT/HCPCS: 96374; 96375 ×4; 99283; J1200; J1100; J2765; J3360; J1885

== ENCOUNTER 2019-10-15 16:56 | Emergency (ER) | payer OTHER ==
[2019-10-15] MEDS ORDERED: ONDANSETRON 4 MG/2 ML VIAL IVP STA (17:36)
[2019-10-15] MEDS ORDERED: MORPHINE SULFATE 4 MG/ML SYRINGE IV STA (17:36)
[2019-10-15] MEDS ORDERED: SODIUM CHLORIDE 0.9% 1,000 ML IV STA (17:36)
--- NOTE | 2019-10-15 17:44 | ED ---
Abdominal Pain HPI - General Chief Complaint: Abdominal Pain Stated Complaint: Stomach pain Time Seen by Provider: 10/15/19 17:03 Source: patient Mode of arrival: ambulatory Limitations: no limitations - History of Present Illness Initial Comments: Patient is a 44-year-old female presenting to the emergency Department with complaints of a sudden onset right upper quadrant abdominal pain x 4 hours prior to arrival. Patient states she's been feeling fine prior to this pain starting. She describes the pain as very sharp in nature causing her to double over. She states the pain is up and down and possibly located in the right upper quadrant with some referring pain to the center of her abdomen. Patient denies any previous abdominal surgeries other than tubal ligation. Patient did have normal menstrual cycle ended yesterday. She denies fever, chills, nausea, vomiting, diarrhea. Patient's had normal bowel movements the last few days. She has no other complaints at this time. Upon arrival to the ER, Patient is slightly tachycardia at 103 secondary to pain, BP is 170/98, rest of vitals normal. - Related Data Home Medications Medication Instructions Recorded Confirmed Lisinopril [Zestril] 40 mg PO DAILY 01/24/16 07/15/18 Gabapentin [Neurontin] 600 mg PO TID 11/01/17 07/15/18 HYDROcodone/APAP 10-325MG [[place] 1 tab PO Q6H PRN 11/01/17 07/15/18 10-325] Baclofen [Lioresal] 20 mg PO DAILY 07/13/18 07/15/18 Cyclobenzaprine [Flexeril] 10 mg PO TID PRN 07/13/18 07/15/18 QUEtiapine XR [SEROquel XR] 150 mg PO HS 07/13/18 07/15/18 Topiramate [Topamax] 100 mg PO DAILY 07/13/18 07/15/18 Previous Rx's Medication Instructions Recorded predniSONE 10 mg PO DAILY #15 tab 08/01/18 Allergies Allergy/AdvReac Type Severity Reaction Status Date / Time No Known Allergies Allergy Verified 10/15/19 16:59 Review of Systems ROS Statement: Those systems with pertinent positive or pertinent negative responses have been documented in the HPI. ROS Other: All systems not noted in ROS Statement are negative. Past Medical History Past Medical History: Fibromyalgia, Hypertension, Osteoarthritis (OA) Additional Past Medical History / Comment(s): chronic back pain, scoliosis, migraines, colitis, History of Any Multi-Drug Resistant Organisms: None Reported Past Surgical History: Bladder Surgery, Orthopedic Surgery, Tubal Ligation Additional Past Surgical History / Comment(s): cervical fusion, Lt knee arthroscopy, colonoscopy, bladder suspension, lower back nerve ending surgery Past Anesthesia/Blood Transfusion Reactions: Family History of Problems w/ Anesthesia Additional Past Anesthesia/Blood Transfusion Reaction / Comment(s): father has PONV Past Psychological History: Bipolar Smoking Status: Former smoker Past Alcohol Use History: Occasional Past Drug Use History: None Reported - Past Family History Mother Family Medical History: No Reported History Additional Family Medical History / Comment(s): Mother is healthy. Father Family Medical History: Cancer Additional Family Medical History / Comment(s): Prostate cancer General Exam - General Exam Comments Initial Comments: GENERAL: Well-appearing, well-nourished, in mild distress secondary to abdominal pain. HEAD: Atraumatic, normocephalic. EYES: Pupils equal round and reactive to light, extraocular movements intact, sclera anicteric, conjunctiva are normal. ENT: TMs normal, nares patent, oropharynx clear without exudates. Moist mucous membranes. NECK: Normal range of motion, supple without lymphadenopathy or JVD. LUNGS: Breath sounds clear to auscultation bilaterally and equal. No wheezes rales or rhonchi. HEART: Regular rate and rhythm without murmurs, rubs or gallops. ABDOMEN: Tenderness to palpation in the right upper quadrant and mild epigastric tenderness. Soft, normoactive bowel sounds. No guarding, no rebound. No masses appreciated. : Deferred EXTREMITIES: Normal range of motion, no pitting or edema. No clubbing or cyanosis. NEUROLOGICAL: Normal speech, normal gait. PSYCH: Normal mood, normal affect. SKIN: Warm, Dry, normal turgor, no rashes or lesions noted. Limitations: no limitations Course Vital Signs 10/15/19 10/15/19 16:58 19:55 Temperature 98.0 F 98.3 F Pulse Rate 103 H 78 Respiratory 24 18 Rate Blood Pressure 178/98 144/96 O2 Sat by Pulse 99 99 Oximetry Medical Decision Making - Medical Decision Making Patient is a 44-year-old female presenting with sudden onset abdominal pain x 4 hours prior to arrival. Patient is afebrile. Lab work reveals no acute abnormalities. Urine is normal, no signs of infection. CT the abdomen and pelvis shows no acute abnormalities. There is a few scattered diverticuli without evidence diverticulitis. Patient was given fluids, Zofran, pain control. Her symptoms have decreased. I discussed these findings with the patient. It is just that her symptoms are most likely related to biliary colic or a viral illness. Patient is stable for discharge at this time. Patient does have pain medication at home that she will continue to take and will continue with a clear liquid diet for the next day. Patient will be given referral for a surgeon for possible gallbladder workup. She is in agreement with this plan of care. Return parameters were discussed with the patient she verbalized understanding. Case discussed with Dr. Vickers. - Lab Data Result diagrams: 10/15/19 17:34 10/15/19 17:34 Lab Results 10/15/19 10/15/19 10/15/19 Range/Units 17:34 17:34 17:34 WBC 8.1 (3.8-10.6) k/uL RBC 4.10 (3.80-5.40) m/uL Hgb 13.0 (11.4-16.0) gm/dL Hct 37.0 (34.0-46.0) % MCV 90.3 (80.0-100.0) fL MCH 31.8 (25.0-35.0) pg MCHC 35.3 (31.0-37.0) g/dL RDW 12.8 (11.5-15.5) % Plt Count 386 (150-450) k/uL Neutrophils % 51 % Lymphocytes % 37 % Monocytes % 7 % Eosinophils % 3 % Basophils % 1 % Neutrophils # 4.1 (1.3-7.7) k/uL Lymphocytes # 3.0 (1.0-4.8) k/uL Monocytes # 0.5 (0-1.0) k/uL Eosinophils # 0.2 (0-0.7) k/uL Basophils # 0.1 (0-0.2) k/uL PT 10.5 (9.0-12.0) sec INR 1.0 (<1.2) APTT 25.8 (22.0-30.0) sec Sodium 137 (137-145) mmol/L Potassium 4.5 (3.5-5.1) mmol/L Chloride 107 (98-107) mmol/L Carbon Dioxide 20 L (22-30) mmol/L Anion Gap 10 mmol/L BUN 19 H (7-17) mg/dL Creatinine 0.79 (0.52-1.04) mg/dL Est GFR (CKD-EPI)AfAm >90 (>60 ml/min/1.73 sqM) Est GFR (CKD-EPI)NonAf >90 (>60 ml/min/1.73 sqM) Glucose 89 (74-99) mg/dL Calcium 9.7 (8.4-10.2) mg/dL Total Bilirubin 0.3 (0.2-1.3) mg/dL AST 21 (14-36) U/L ALT 13 (4-34) U/L Alkaline Phosphatase 61 (38-126) U/L Total Protein 7.3 (6.3-8.2) g/dL Albumin 4.5 (3.5-5.0) g/dL Amylase 60 (30-110) U/L Lipase 137 (23-300) U/L Urine Color Urine Appearance (Clear) Urine pH (5.0-8.0) Ur Specific [place] (1.001-1.035) Urine Protein (Negative) Urine Glucose (UA) (Negative) Urine Ketones (Negative) Urine Blood (Negative) Urine Nitrite (Negative) Urine Bilirubin (Negative) Urine Urobilinogen (<2.0) mg/dL Ur Leukocyte Esterase (Negative) 10/15/19 Range/Units Unknown WBC (3.8-10.6) k/uL RBC (3.80-5.40) m/uL Hgb (11.4-16.0) gm/dL Hct (34.0-46.0) % MCV (80.0-100.0) fL MCH (25.0-35.0) pg MCHC (31.0-37.0) g/dL RDW (11.5-15.5) % Plt Count (150-450) k/uL Neutrophils % % Lymphocytes % % Monocytes % % Eosinophils % % Basophils % % Neutrophils # (1.3-7.7) k/uL Lymphocytes # (1.0-4.8) k/uL Monocytes # (0-1.0) k/uL Eosinophils # (0-0.7) k/uL Basophils # (0-0.2) k/uL PT (9.0-12.0) sec INR (<1.2) APTT (22.0-30.0) sec Sodium (137-145) mmol/L Potassium (3.5-5.1) mmol/L Chloride (98-107) mmol/L Carbon Dioxide (22-30) mmol/L Anion Gap mmol/L BUN (7-17) mg/dL Creatinine (0.52-1.04) mg/dL Est GFR (CKD-EPI)AfAm (>60 ml/min/1.73 sqM) Est GFR (CKD-EPI)NonAf (>60 ml/min/1.73 sqM) Glucose (74-99) mg/dL Calcium (8.4-10.2) mg/dL Total Bilirubin (0.2-1.3) mg/dL AST (14-36) U/L ALT (4-34) U/L Alkaline Phosphatase (38-126) U/L Total Protein (6.3-8.2) g/dL Albumin (3.5-5.0) g/dL Amylase (30-110) U/L Lipase (23-300) U/L Urine Color Light Yellow Urine Appearance Clear (Clear) Urine pH 6.5 (5.0-8.0) Ur Specific [place] >1.050 H (1.001-1.035) Urine Protein Negative (Negative) Urine Glucose (UA) Negative (Negative) Urine Ketones Negative (Negative) Urine Blood Negative (Negative) Urine Nitrite Negative (Negative) Urine Bilirubin Negative (Negative) Urine Urobilinogen <2.0 (<2.0) mg/dL Ur Leukocyte Esterase Negative (Negative) Disposition Clinical Impression: Abdominal pain, Biliary colic Disposition: HOME SELF-CARE Condition: Stable Instructions (If sedation given, give patient instructions): Abdominal Pain (ED) Additional Instructions: Please return to the Emergency Department if symptoms worsen or any other concerns. Follow-up with PCP and/or surgeon if symptoms persist. Is patient prescribed a controlled substance at d/c from ED?: No Referrals: Nonstaff,Physician [Primary Care Provider] - 1-2 days Joni Owens MD [Medical Doctor] - 1-2 days
[2019-10-15 17:45] LABS: Basophils # (A) 0.1 k/uL (0-0.2); Basophils % (A) 1 %; Eosinophils # (A) 0.2 k/uL (0-0.7); Eosinophils % (A) 3 %; Lymphocytes % (A) 37 %; MCH 31.8 pg (25.0-35.0); MCHC 35.3 g/dL (31.0-37.0); MCV 90.3 fL (80.0-100.0); Mean Platelet Volume 7.1; Monocytes # (A) 0.5 k/uL (0-1.0); Monocytes % (A) 7 %; Neutrophils # (A) 4.1 k/uL (1.3-7.7); Neutrophils % (A) 51 %; Platelet Count 386 k/uL (150-450); RDW 12.8 % (11.5-15.5); WBC 8.1 k/uL (3.8-10.6)
[2019-10-15 17:55] LABS: ALT 13 U/L (4-34); AST 21 U/L (14-36); African American GFR (CKD) >90 (>60 ml/min/1.73 sqM); Albumin 4.5 g/dL (3.5-5.0); Alkaline Phosphatase 61 U/L (38-126); Amylase 60 U/L (30-110); Anion Gap 10 mmol/L; Blood Urea Nitrogen 19 mg/dL (7-17); Calcium 9.7 mg/dL (8.4-10.2); Carbon Dioxide 20 mmol/L (22-30); Chloride 107 mmol/L (98-107); Glucose 89 mg/dL (74-99); Non-African American GFR(CKD) >90 (>60 ml/min/1.73 sqM); Potassium 4.5 mmol/L (3.5-5.1); Sodium 137 mmol/L (137-145); Total Bilirubin 0.3 mg/dL (0.2-1.3); Total Protein 7.3 g/dL (6.3-8.2)
[2019-10-15 17:58] LABS: Partial Thromboplastin Time 25.8 sec (22.0-30.0); Prothrombin Time 10.5 sec (9.0-12.0)
--- NOTE | 2019-10-15 18:41 | CT ---
EXAMINATION TYPE: CT abdomen pelvis w con DATE OF EXAM: 10/15/2019 COMPARISON: 12/16/2017 HISTORY: Right upper quadrant pain. CT DLP: 1009.2 mGycm Automated exposure control for dose reduction was used. CONTRAST: Performed with IV Contrast, patient injected with 100 mL of Isovue 300. Multiple axial sections were obtained from the diaphragm to the floor the pelvis with intravenous con trast. Lung bases are clear. There is no pleural effusion. Heart size is normal. There is no pericardial eff usion. Stomach is intact. Liver spleen pancreas gallbladder appear normal. Bile ducts are not dilated . There is no adrenal mass. Kidneys show satisfactory contrast opacification. There is no hydronephrosi s. Ureters are not dilated. Delayed images show normal excretion. There is no retroperitoneal adenopa thy. Bladder distends smoothly. There is no inguinal hernia. Uterus is anteverted. There is no free f luid in the pelvis. There is no evidence of a pelvic mass. Appendix is posterior and appears normal. There is no mesenteric edema. There is no ascites or free air. There is small umbilical hernia that c ontains fat. There is no evidence of a bowel obstruction. There is narrowing of L4-5 disc space. Lumbar vertebra have normal alignment. There is no compression fracture. Bony pelvis is intact. IMPRESSION: No sign of acute abdomen and pelvis. Stable small umbilical hernia. Normal appendix. No adverse roldan e compared to old exam. There are a few scattered sigmoid diverticula without evidence of diverticuli tis.
[2019-10-15 19:22] LABS: Appearance,Urine Clear (Clear); Bilirubin,Urine Negative (Negative); Blood,Urine Negative (Negative); Color,Urine Light Yellow; Glucose,Urine (UA) Negative (Negative); Ketones,Urine Negative (Negative); Leukocyte Esterase,Urine Negative (Negative); Nitrite,Urine Negative (Negative); PH, Urine 6.5 (5.0-8.0); Protein,Urine Negative (Negative); Urobilinogen,Urine <2.0 mg/dL (<2.0)
[2019-10-15 19:39] LABS: Specific Gravity,Urine >1.050 (1.001-1.035)
[2019-10-15 19:56] VITALS: BP 144/96; PULSE 78; RESP 18; TEMP 98.3
== END 2019-10-15 19:55 | disposition home or self-care (01) ==
LOC: EC 16:56
DX: K80.50 Calculus of bile duct without cholangitis or cholecystitis without obstruction (principal); K57.90 Diverticulosis of intestine, part unspecified, without perforation or abscess without bleeding; M79.7 Fibromyalgia; I10 Essential (primary) hypertension; M19.90 Unspecified osteoarthritis, unspecified site; F31.9 Bipolar disorder, unspecified; Z87.891 Personal history of nicotine dependence; Z79.899 Other long term (current) drug therapy; Z86.69 Personal history of other diseases of the nervous system and sense organs; Z98.1 Arthrodesis status; Z98.51 Tubal ligation status
CPT/HCPCS: 36415; 80053; 82150; 83690; 85025; 85610; 85730; 81003; 74177; 99284; 96374; 96375; 96361; J2270; J2405; Q9967

== ENCOUNTER 2019-10-23 10:57 | Observation (INO) | payer OTHER ==
[2019-10-23] MEDS ORDERED: FAMOTIDINE 20 MG/2 ML VIAL IV STA (11:27)
[2019-10-23] MEDS ORDERED: EPINEPHrine 1 MG/ML 1 ML AMP SQ ONE (11:27)
[2019-10-23] MEDS ORDERED: TRANEXAMIC ACID 1,000 MG in SODIUM CHLORIDE 0.9% 100 ML IV STA (11:28)
[2019-10-23] MEDS ORDERED: MORPHINE SULFATE 4 MG/ML SYRINGE IV STA (11:28)
[2019-10-23] MEDS ORDERED: SODIUM CHLORIDE 0.9% 1,000 ML IV STA (11:28)
[2019-10-23] MEDS ORDERED: ONDANSETRON 4 MG/2 ML VIAL IVP STA (11:34)
[2019-10-23 11:50] LABS: Basophils # (A) 0.1 k/uL (0-0.2); Basophils % (A) 1 %; Eosinophils # (A) 0.2 k/uL (0-0.7); Eosinophils % (A) 2 %; HGB 15.7 gm/dL (11.4-16.0); Lymphocytes # (A) 1.9 k/uL (1.0-4.8); Lymphocytes % (A) 16 %; MCH 33.9 pg (25.0-35.0); MCHC 37.5 g/dL (31.0-37.0); MCV 90.2 fL (80.0-100.0); Mean Platelet Volume 7.2; Monocytes # (A) 0.6 k/uL (0-1.0); Monocytes % (A) 5 %; Neutrophils # (A) 8.6 k/uL (1.3-7.7); Neutrophils % (A) 75 %; Platelet Count 325 k/uL (150-450); RBC 4.65 m/uL (3.80-5.40); RDW 12.7 % (11.5-15.5); WBC 11.6 k/uL (3.8-10.6)
[2019-10-23 12:00] LABS: ALT 15 U/L (4-34); AST 24 U/L (14-36); African American GFR (CKD) >90 (>60 ml/min/1.73 sqM); Albumin 4.1 g/dL (3.5-5.0); Alkaline Phosphatase 58 U/L (38-126); Anion Gap 7 mmol/L; Blood Urea Nitrogen 15 mg/dL (7-17); Calcium 9.2 mg/dL (8.4-10.2); Carbon Dioxide 24 mmol/L (22-30); Chloride 107 mmol/L (98-107); Glucose 91 mg/dL (74-99); Non-African American GFR(CKD) >90 (>60 ml/min/1.73 sqM); Potassium 4.2 mmol/L (3.5-5.1); Sodium 138 mmol/L (137-145); Total Bilirubin 0.3 mg/dL (0.2-1.3); Total Protein 6.8 g/dL (6.3-8.2)
--- NOTE | 2019-10-23 12:06 | XR ---
EXAMINATION TYPE: XR chest 2V DATE OF EXAM: 10/23/2019 HISTORY: once. REFERENCE: NONE. FINDINGS: There has been a previous ACDF of the lower cervical spine. Lungs are clear.The heart is not enlarged. Pleural spaces are clear. IMPRESSION: NO ACUTE INTRATHORACIC ABNORMALITY.
[2019-10-23] MEDS ORDERED: HYDROmorphone 1 MG/ML 1 ML SYRINGE IVP STA (12:26)
[2019-10-23 12:39] LABS: Appearance,Urine Clear (Clear); Bilirubin,Urine Negative (Negative); Blood,Urine Small (Negative); Color,Urine Yellow; Glucose,Urine (UA) Negative (Negative); Hyaline Casts,Urine 13 /lpf (0-2); Ketones,Urine Negative (Negative); Leukocyte Esterase,Urine Negative (Negative); Mucus,Urine Rare /hpf; Nitrite,Urine Negative (Negative); PH, Urine 5.5 (5.0-8.0); Protein,Urine Trace (Negative); RBC,Urine 10 /hpf (0-5); Specific Gravity,Urine 1.016 (1.001-1.035); Squamous Epithelial Cell,Urine 1 /hpf (0-4); Urobilinogen,Urine <2.0 mg/dL (<2.0); WBC,Urine <1 /hpf (0-5)
--- NOTE | 2019-10-23 12:56 | ED ---
General Adult HPI - General Chief complaint: Allergic Reaction Stated complaint: abd pain, poss allergic rxn Time Seen by Provider: 10/23/19 11:10 Source: patient Mode of arrival: EMS Limitations: no limitations - History of Present Illness Initial comments: The patient is a 44 old female past medical history of fibromyalgia, hypertension, chronic back pain who presents emergency room with reported abdominal pain. She was seen 7 days ago for similar complaint. She describes it as a diffuse abdominal pain which is sharp and cramping. It started several hours ago. She was at home attempting to have a bowel movement and she states the pain got very severe. She did have a episode of loose, brown stool. Denies melenic stools or hematochezia. No constipation or diarrhea. Denies any fevers or chills. There is associated nausea with an episode of nonbilious, nonbloody vomiting. Denies any chest pain or difficulty breathing. No sick contacts with similar symptoms. No recent antibiotic use. No history of abdominal surgeries in the past. Denies any abnormal vaginal bleeding or discharge. No concern for . Denies dysuria, hematuria or difficulty voiding. CAT scan 7 days ago showed no acute intra-abdominal process. States she has had a colonoscopy without remarkable findings. There are no alleviating, precipitating or m odifying factors - Related Data Home Medications Medication Instructions Recorded Confirmed Gabapentin [Neurontin] 600 mg PO TID 11/01/17 10/23/19 HYDROcodone/APAP 10-325MG [[place] 1 tab PO BID 11/01/17 10/23/19 10-325] Cyclobenzaprine [Flexeril] 10 mg PO BID 10/23/19 10/23/19 DULoxetine HCL [Cymbalta] 60 mg PO DAILY 10/23/19 10/23/19 Hydrochlorothiazide 12.5 mg PO DAILY 10/23/19 10/23/19 QUEtiapine [SEROquel] 200 mg PO HS 10/23/19 10/23/19 amLODIPine [Norvasc] 10 mg PO DAILY 10/23/19 10/23/19 busPIRone HCL 15 mg PO TID PRN 10/23/19 10/23/19 Previous Rx's Medication Instructions Recorded Famotidine [Pepcid] 20 mg PO BID 5 Days #10 tablet 10/24/19 Ibuprofen [Motrin] 400 mg PO TID PRN #9 tab 10/24/19 Allergies Allergy/AdvReac Type Severity Reaction Status Date / Time lisinopril Allergy Swelling Verified 10/23/19 16:13 Review of Systems ROS Statement: Those systems with pertinent positive or pertinent negative responses have been documented in the HPI. ROS Other: All systems not noted in ROS Statement are negative. Past Medical History Past Medical History: Fibromyalgia, Hypertension, Osteoarthritis (OA) Additional Past Medical History / Comment(s): chronic back pain, scoliosis, migraines, colitis, History of Any Multi-Drug Resistant Organisms: None Reported Past Surgical History: Bladder Surgery, Orthopedic Surgery, Tubal Ligation Additional Past Surgical History / Comment(s): cervical fusion, Lt knee arthroscopy, colonoscopy, bladder suspension, lower back nerve ending surgery Past Anesthesia/Blood Transfusion Reactions: Family History of Problems w/ Anesthesia Additional Past Anesthesia/Blood Transfusion Reaction / Comment(s): father has PONV Past Psychological History: Bipolar Smoking Status: Former smoker Past Alcohol Use History: Occasional Past Drug Use History: None Reported - Past Family History Mother Family Medical History: No Reported History Additional Family Medical History / Comment(s): Mother is healthy. Father Family Medical History: Cancer Additional Family Medical History / Comment(s): Prostate cancer General Exam Limitations: no limitations General appearance: alert, in no apparent distress Head exam: Present: atraumatic, normocephalic, normal inspection Eye exam: Present: normal appearance, PERRL, EOMI. Absent: scleral icterus, conjunctival injection, periorbital swelling ENT exam: Present: mucous membranes moist, other (significant posterior pharynx swelling and uvular swelling. Mallampatti score of 4. No drooling, trismus, hoarseness or stridor. No brawny edema of the neck or crepitance. ) Neck exam: Present: normal inspection. Absent: tenderness, meningismus, lymphadenopathy Respiratory exam: Present: normal lung sounds bilaterally. Absent: respiratory distress, wheezes, rales, rhonchi, stridor Cardiovascular Exam: Present: regular rate, normal rhythm, normal heart sounds. Absent: systolic murmur, diastolic murmur, rubs, gallop, clicks GI/Abdominal exam: Present: soft, tenderness (diffuse), normal bowel sounds. Absent: distended, guarding, rebound, rigid Extremities exam: Present: normal inspection, full ROM, normal capillary refill. Absent: tenderness, pedal edema, joint swelling, calf tenderness Back exam: Present: normal inspection Neurological exam: Present: alert, oriented X3, CN II-XII intact Psychiatric exam: Present: normal affect, normal mood Skin exam: Present: warm, dry, intact, normal color. Absent: rash Course Vital Signs 10/23/19 10/23/19 10/23/19 11:08 11:41 11:52 Temperature 98.9 F 98.3 F Pulse Rate 95 91 Respiratory 18 20 20 Rate Blood Pressure 113/83 115/86 O2 Sat by Pulse 99 99 Oximetry 10/23/19 10/23/19 10/23/19 12:30 12:59 14:43 Temperature Pulse Rate 96 93 91 Respiratory 20 18 16 Rate Blood Pressure 149/94 138/90 122/80 O2 Sat by Pulse 99 99 97 Oximetry EKG Findings - EKG Comments: EKG Findings:: EKG demonstrates a normal sinus rhythm with ventricular rate 94. NC interval 160. QRS 86. QTC of 432. No acute ST segment elevations or depressions concerning for ischemic changes Medical Decision Making - Medical Decision Making Upon arrival the patient was placed into room 23. There are history of was performed. The patient does have significant posterior pharyngeal swelling as well as swelling of her uvula. Because of the suspected logan-induced angioedema the patient was moved to trauma 2. Peripheral IV was established. She had been given Benadryl and Solu-Medrol by EMS. I did provide her with a dose of Pepcid, subcu epinephrine and TXA. I recommended completing laboratory studies. The patient is complaining of pain and nausea and therefore she is given 4 mg of morphine and 4 mg of Zofran. Laboratory studies demonstrated a white blood cell count of 11.6. Lactic acid elevated at 2.3. Urinalysis shows small blood with 13 hyaline casts and 10 red blood cells. HCG is negative. I discussed performing imaging of the patient's abdomen. She recently had a CT for similar abdominal pain 7 days ago and is refusing CT. I did perform a KUB because of the patient's hematuria. KUB demonstrates no acute intra-abdominal process including renal stones. Chest x-ray was performed because the patient's reported shortness of breath which demonstrates no acute intrathoracic process. The patient is reevaluated and continues to have some abdominal discomfort. She is provided 1 mg of Dilaudid. Serial exams of the patient's pharynx demonstrated continued posterior pharyngeal swelling with minimal improvement. The patient is able to speak in full sentences and denies a sensation that her throat is closing off. Because of this I did recommend hospital admission. A call discuss case with Dr. Bran who recommended continued steroids and B enadryl. I called and discussed the case with Dr. Faith who accepted admission for the patient. Bridging orders were placed and the patient was transferred to floor in stable condition - Lab Data Result diagrams: 10/23/19 11:30 10/24/19 06:30 Lab Results 10/23/19 10/23/19 10/23/19 Range/Units 11:30 11:30 11:30 WBC 11.6 H (3.8-10.6) k/uL RBC 4.65 (3.80-5.40) m/uL Hgb 15.7 (11.4-16.0) gm/dL Hct 42.0 (34.0-46.0) % MCV 90.2 (80.0-100.0) fL MCH 33.9 (25.0-35.0) pg MCHC 37.5 H (31.0-37.0) g/dL RDW 12.7 (11.5-15.5) % Plt Count 325 (150-450) k/uL Neutrophils % 75 % Lymphocytes % 16 % Monocytes % 5 % Eosinophils % 2 % Basophils % 1 % Neutrophils # 8.6 H (1.3-7.7) k/uL Lymphocytes # 1.9 (1.0-4.8) k/uL Monocytes # 0.6 (0-1.0) k/uL Eosinophils # 0.2 (0-0.7) k/uL Basophils # 0.1 (0-0.2) k/uL Sodium 138 (137-145) mmol/L Potassium 4.2 (3.5-5.1) mmol/L Chloride 107 (98-107) mmol/L Carbon Dioxide 24 (22-30) mmol/L Anion Gap 7 mmol/L BUN 15 (7-17) mg/dL Creatinine 0.74 (0.52-1.04) mg/dL Est GFR (CKD-EPI)AfAm >90 (>60 ml/min/1.73 sqM) Est GFR (CKD-EPI)NonAf >90 (>60 ml/min/1.73 sqM) Glucose 91 (74-99) mg/dL Lactic Ac Sepsis Rflx Plasma Lactic Acid Jesus 2.3 H* (0.7-2.0) mmol/L Calcium 9.2 (8.4-10.2) mg/dL Total Bilirubin 0.3 (0.2-1.3) mg/dL AST 24 (14-36) U/L ALT 15 (4-34) U/L Alkaline Phosphatase 58 (38-126) U/L Total Protein 6.8 (6.3-8.2) g/dL Albumin 4.1 (3.5-5.0) g/dL Lipase 104 (23-300) U/L HCG, Qual Urine Color Urine Appearance (Clear) Urine pH (5.0-8.0) Ur Specific [place] (1.001-1.035) Urine Protein (Negative) Urine Glucose (UA) (Negative) Urine Ketones (Negative) Urine Blood (Negative) Urine Nitrite (Negative) Urine Bilirubin (Negative) Urine Urobilinogen (<2.0) mg/dL Ur Leukocyte Esterase (Negative) Urine RBC (0-5) /hpf Urine WBC (0-5) /hpf Ur Squamous Epith Cells (0-4) /hpf Hyaline Casts (0-2) /lpf Urine Mucus (None) /hpf Urine HCG, Qual (Not Detectd) 10/23/19 10/23/19 10/23/19 Range/Units 11:30 12:00 12:20 WBC (3.8-10.6) k/uL RBC (3.80-5.40) m/uL Hgb (11.4-16.0) gm/dL Hct (34.0-46.0) % MCV (80.0-100.0) fL MCH (25.0-35.0) pg MCHC (31.0-37.0) g/dL RDW (11.5-15.5) % Plt Count (150-450) k/uL Neutrophils % % Lymphocytes % % Monocytes % % Eosinophils % % Basophils % % Neutrophils # (1.3-7.7) k/uL Lymphocytes # (1.0-4.8) k/uL Monocytes # (0-1.0) k/uL Eosinophils # (0-0.7) k/uL Basophils # (0-0.2) k/uL Sodium (137-145) mmol/L Potassium (3.5-5.1) mmol/L Chloride (98-107) mmol/L Carbon Dioxide (22-30) mmol/L Anion Gap mmol/L BUN (7-17) mg/dL Creatinine (0.52-1.04) mg/dL Est GFR (CKD-EPI)AfAm (>60 ml/min/1.73 sqM) Est GFR (CKD-EPI)NonAf (>60 ml/min/1.73 sqM) Glucose (74-99) mg/dL Lactic Ac Sepsis Rflx Y Plasma Lactic Acid Jesus (0.7-2.0) mmol/L Calcium (8.4-10.2) mg/dL Total Bilirubin (0.2-1.3) mg/dL AST (14-36) U/L ALT (4-34) U/L Alkaline Phosphatase (38-126) U/L Total Protein (6.3-8.2) g/dL Albumin (3.5-5.0) g/dL Lipase (23-300) U/L HCG, Qual Not Detected Urine Color Yellow Urine Appearance Clear (Clear) Urine pH 5.5 (5.0-8.0) Ur Specific [place] 1.016 (1.001-1.035) Urine Protein Trace H (Negative) Urine Glucose (UA) Negative (Negative) Urine Ketones Negative (Negative) Urine Blood Small H (Negative) Urine Nitrite Negative (Negative) Urine Bilirubin Negative (Negative) Urine Urobilinogen <2.0 (<2.0) mg/dL Ur Leukocyte Esterase Negative (Negative) Urine RBC 10 H (0-5) /hpf Urine WBC <1 (0-5) /hpf Ur Squamous Epith Cells 1 (0-4) /hpf Hyaline Casts 13 H (0-2) /lpf Urine Mucus Rare H (None) /hpf Urine HCG, Qual (Not Detectd) 10/23/19 Range/Units 13:06 WBC (3.8-10.6) k/uL RBC (3.80-5.40) m/uL Hgb (11.4-16.0) gm/dL Hct (34.0-46.0) % MCV (80.0-100.0) fL MCH (25.0-35.0) pg MCHC (31.0-37.0) g/dL RDW (11.5-15.5) % Plt Count (150-450) k/uL Neutrophils % % Lymphocytes % % Monocytes % % Eosinophils % % Basophils % % Neutrophils # (1.3-7.7) k/uL Lymphocytes # (1.0-4.8) k/uL Monocytes # (0-1.0) k/uL Eosinophils # (0-0.7) k/uL Basophils # (0-0.2) k/uL Sodium (137-145) mmol/L Potassium (3.5-5.1) mmol/L Chloride (98-107) mmol/L Carbon Dioxide (22-30) mmol/L Anion Gap mmol/L BUN (7-17) mg/dL Creatinine (0.52-1.04) mg/dL Est GFR (CKD-EPI)AfAm (>60 ml/min/1.73 sqM) Est GFR (CKD-EPI)NonAf (>60 ml/min/1.73 sqM) Glucose (74-99) mg/dL Lactic Ac Sepsis Rflx Plasma Lactic Acid Jessu (0.7-2.0) mmol/L Calcium (8.4-10.2) mg/dL Total Bilirubin (0.2-1.3) mg/dL AST (14-36) U/L ALT (4-34) U/L Alkaline Phosphatase (38-126) U/L Total Protein (6.3-8.2) g/dL Albumin (3.5-5.0) g/dL Lipase (23-300) U/L HCG, Qual Urine Color Urine Appearance (Clear) Urine pH (5.0-8.0) Ur Specific [place] (1.001-1.035) Urine Protein (Negative) Urine Glucose (UA) (Negative) Urine Ketones (Negative) Urine Blood (Negative) Urine Nitrite (Negative) Urine Bilirubin (Negative) Urine Urobilinogen (<2.0) mg/dL Ur Leukocyte Esterase (Negative) Urine RBC (0-5) /hpf Urine WBC (0-5) /hpf Ur Squamous Epith Cells (0-4) /hpf Hyaline Casts (0-2) /lpf Urine Mucus (None) /hpf Urine HCG, Qual Not Detected (Not Detectd) Disposition Clinical Impression: Angioedema, Abdominal pain Disposition: ADMITTED IP TO THIS [facility] Condition: Stable Is patient prescribed a controlled substance at d/c from ED?: No Decision to Admit Reason: Admit from EC Decision Date: 10/23/19 Decision Time: 14:06
--- NOTE | 2019-10-23 13:02 | XR ---
EXAMINATION TYPE: XR KUB , 2 VIEWS DATE OF EXAM ORDERED: 10/23/2019 HISTORY: abdominal pain. COMPARISON: Previous study dated 07/31/2016. FINDINGS: The lung bases are clear. Within the abdomen, the abdominal gas pattern is within normal limits. There is no evidence of obstru ction or free air. There are phleboliths within the pelvis. There is a mild dextroscoliosis present. IMPRESSION: NO ACUTE INTRA-ABDOMINAL ABNORMALITY IDENTIFIED.
[2019-10-23] MEDS ORDERED: ONDANSETRON 4 MG/2 ML VIAL IVP PRN ×2 (14:06→17:59)
[2019-10-23] MEDS ORDERED: NALOXONE 0.4 MG/ML 1 ML VIAL IV PRN (14:06)
[2019-10-23] MEDS ORDERED: HYDROmorphone 1 MG/ML 1 ML SYRINGE IVP PRN (14:06)
[2019-10-23] MEDS: SODIUM CHLORIDE 0.9% 1,000 ML IV SCH (15:45)
[2019-10-23] MEDS ORDERED: busPIRone HCl 5 MG TAB PO PRN (15:53)
[2019-10-23] MEDS ORDERED: PROMETHAZINE 25 MG TAB PO PRN (15:55)
[2019-10-23] MEDS ORDERED: MORPHINE SULFATE 4 MG/ML SYRINGE IVP PRN (16:11)
[2019-10-23] MEDS: methylPREDNISolone SOD SUCCI 40 MG/ML 1 ML VIAL IV SCH (17:00)
[2019-10-23] MEDS: diphenhydrAMINE 50 MG/ML 1 ML VIAL IVP SCH (17:00)
[2019-10-23] MEDS ORDERED: HYDROmorphone 0.5 MG/0.5 ML SYRINGE IVP STA (18:49)
--- NOTE | 2019-10-23 19:14 | P.HPIM ---
History of Present Illness This is a pleasant 44 years old female with past medical history of hypertension, osteoarthritis, chronic back pain, migraines, fibromyalgia, tubal ligation. Presents because of abdominal pain, of one day duration , all over her abdomen and felt like sharp at point in her right and left flank , and suprapubic area. Associated with loose stool 1day which looked like mashed potato as per pt, associated with nausea and vomiting about 3 times, no blood in her stool or vomiting. pt has decreased appetite i asked pt to be NPO but she feels hungry and wants to advance diet last week she was in the hospital for abd pain and says it was different as it was in RUQ and felt like sharp, she had CT abd and plevis: no sign of acute abd or pelvis. also during my exam pt was having no abd tenderness to superficial or deep palpitation while pt is been distracted she has history of chronic neck pain and status fusion surgery and that is why she is on norco currently ( home medication) she has multiple ED visits for multiple pains like headache, neck pain , migraine, low back pain , leg pain, and pelvic pain her dilaudid was lowered to morphine and pt got upset per staff, one extra dose of diaudid is provided, risk of narcotic is explained pt also was complaining from swelling in her finger, face and lips , she felt swelling in her throat, she states she takes lisinopril for years , and yesterday she ate shellfish , however with treatment , her swelling in face, lips and finger is almost resolved and they dont look swelling to me anymore. she state she is in early menopause , and her menses is becoming less and irreg ular , last Menstrual period was about one week ago, Vitas looks stable. Labs showing that C of 11.6 K, BMP and liver enzymes were unremarkable. Lactic acid 2.3, urine test is negative. EKG showed normal sinus rhythm at [address]-T changes. Chest x-ray: No acute. KUB:no acute intra-abdominal abnormality. her abn UA mostly related to her current disease and dehydration The emergency room chances several doses of Dilaudid. She was started on normal saline 100 mL/h and Benadryl, also she was started on Solu-Medrol. And Pepcid Review of Systems CONSTITUTIONAL: No fever, no malaise, no fatigue. HEENT: No recent visual problems or hearing problems. Denied any sore throat. CARDIOVASCULAR: No orthopnea, PND, no palpitations, no syncope. PULMONARY: No shortness of breath, no cough, no hemoptysis. GASTROINTESTINAL: No diarrhea, no nausea, no vomiting, no abdominal pain. Normoactive bowel sounds. NEUROLOGICAL: No headaches, no weakness, no numbness. HEMATOLOGICAL: Denies any bleeding or petechiae. GENITOURINARY: Denies any burning micturition, frequency, or urgency. MUSCULOSKELETAL/RHEUMATOLOGICAL: Denies any joint pain, swelling, or any muscle pain. ENDOCRINE: Denies any polyuria or polydipsia. Past Medical History Past Medical History: Fibromyalgia, Hypertension, Osteoarthritis (OA) Additional Past Medical History / Comment(s): chronic back pain, scoliosis, migraines, colitis, History of Any Multi-Drug Resistant Organisms: None Reported Past Surgical History: Bladder Surgery, Orthopedic Surgery, Tubal Ligation Additional Past Surgical History / Comment(s): cervical fusion, Lt knee arthroscopy, colonoscopy, bladder suspension, lower back nerve ending surgery Past Anesthesia/Blood Transfusion Reactions: Family History of Problems w/ Anesthesia Additional Past Anesthesia/Blood Transfusion Reaction / Comment(s): father has PONV Smoking Status: Former smoker - Past Family History Mother Family Medical History: No Reported History Additional Family Medical History / Comment(s): Mother is healthy. Father Family Medical History: Cancer Additional Family Medical History / Comment(s): Prostate cancer Medications and Allergies Home Medications Medication Instructions Recorded Confirmed Type Gabapentin [Neurontin] 600 mg PO TID 11/01/17 10/23/19 History HYDROcodone/APAP 10-325MG [[place] 1 tab PO BID 11/01/17 10/23/19 History 10-325] Cyclobenzaprine [Flexeril] 10 mg PO BID 10/23/19 10/23/19 History DULoxetine HCL [Cymbalta] 60 mg PO DAILY 10/23/19 10/23/19 History Hydrochlorothiazide 12.5 mg PO DAILY 10/23/19 10/23/19 History Lisinopril 40 mg PO DAILY 10/23/19 10/23/19 History QUEtiapine [SEROquel] 200 mg PO HS 10/23/19 10/23/19 History amLODIPine [Norvasc] 10 mg PO DAILY 10/23/19 10/23/19 History busPIRone HCL 15 mg PO TID PRN 10/23/19 10/23/19 History Allergies Allergy/AdvReac Type Severity Reaction Status Date / Time lisinopril Allergy Swelling Verified 10/23/19 16:13 Physical Exam Vitals: Vital Signs Temp Pulse Pulse Resp BP BP Pulse Ox 10/23/19 15:24 98.1 F 89 12 127/79 97 10/23/19 14:43 91 16 122/80 97 10/23/19 12:59 93 18 138/90 99 10/23/19 12:30 96 20 149/94 99 10/23/19 11:52 20 10/23/19 11:41 98.3 F 91 20 115/86 99 10/23/19 11:08 98.9 F 95 18 113/83 99 Intake and Output 10/23/19 10/23/19 10/23/19 06:59 14:59 22:59 Other: Weight 81.647 kg 81.647 kg GENERAL: The patient is alert and oriented x3, not in any acute distress. Well developed, well nourished. HEENT: Pupils are round and equally reacting to light. EOMI. No scleral icterus. No conjunctival pallor. Normocephalic, atraumatic. No pharyngeal erythema. No thyromegaly. CARDIOVASCULAR: S1 and S2 present. No murmurs, rubs, or gallops. PULMONARY: Chest is clear to auscultation, no wheezing or crackles. ABDOMEN: Soft, nontender, nondistended, normoactive bowel sounds. No palpable organomegaly. MUSCULOSKELETAL: No joint swelling or deformity. EXTREMITIES: No cyanosis, clubbing, or pedal edema. NEUROLOGICAL: Gross neurological examination did not reveal any focal deficits. SKIN: No rashes. No petechiae Results CBC & Chem 7: 10/23/19 11:30 10/23/19 11:30 Labs: Abnormal Lab Results - Last 24 Hours (Table) 10/23/19 10/23/19 10/23/19 Range/Units 11:30 11:30 12:20 WBC 11.6 H (3.8-10.6) k/uL MCHC 37.5 H (31.0-37.0) g/dL Neutrophils # 8.6 H (1.3-7.7) k/uL Plasma Lactic Acid Jesus 2.3 H* (0.7-2.0) mmol/L Urine Protein Trace H (Negative) Urine Blood Small H (Negative) Urine RBC 10 H (0-5) /hpf Hyaline Casts 13 H (0-2) /lpf Urine Mucus Rare H (None) /hpf Thrombosis Risk Factor Assmnt - Choose All That Apply Each Factor Represents 1 point: Age 41-60 years Other Risk Factors: No Thrombosis Risk Factor Assessment Total Risk Factor Score: 1 Thrombosis Risk Factor Assessment Level: Low Risk Assessment and Plan Assessment: Possible ALLERGIC reaction to lisinopril with angioedema possible mild gastroenteritis multiple visiting to ED for pain symptoms Elevated lactic acid dehydration Essential Hypertension Osteoarthritis Chronic back pain Migraines Fibromyalgia History of tubal ligation Plan: This is a pleasant 44 years old female who presents because of abdominal pain and possible ALLERGIC reaction, she was taken lisinopril, we'll hold lisinopril and saw the patient and continue with Norvasc and diuretic. Patient informed she could not take lisinopril. Continue with IV fluids and follow-up lactic acid level. Labs and medication were reviewed.. Continue same treatment. Continue with symptomatic treatment. Resume home medication. Monitor lytes and vitals. DVT and GI prophylaxis. Further recommendations of the clinical course of the patient DVT prophylaxis: Subcutaneous heparin GI Prophylaxis: Pepcid Prognosis is guarded
[2019-10-23] MEDS: CYCLOBENZAPRINE 10 MG TAB PO SCH (20:57)
[2019-10-23] MEDS: FAMOTIDINE 20 MG/2 ML VIAL IV SCH (20:57)
[2019-10-23] MEDS ORDERED: QUEtiapine 100 MG TAB PO SCH (21:00)
[2019-10-23] MEDS ORDERED: SODIUM CHLORIDE 0.9% 500 ML 500 ML IV ONE (21:26)
[2019-10-23] MEDS: HEPARIN SODIUM,PORCINE 5,000 UNIT/ML 1 ML VIAL SQ SCH (21:39)
[2019-10-23] MEDS: HYDROcodone/APAP 10-325MG 1 EACH TAB PO SCH (21:40)
[2019-10-24] MEDS: methylPREDNISolone SOD SUCCI 40 MG/ML 1 ML VIAL IV SCH (00:06)
[2019-10-24] MEDS: diphenhydrAMINE 50 MG/ML 1 ML VIAL IVP SCH ×2 (00:06→08:34)
[2019-10-24] MEDS: SODIUM CHLORIDE 0.9% 1,000 ML IV SCH ×3 (00:08→12:29)
[2019-10-24] MEDS ORDERED: MORPHINE SULFATE 2 MG/ML SYRINGE IVP PRN (07:16)
[2019-10-24 07:21] LABS: African American GFR (CKD) >90 (>60 ml/min/1.73 sqM); Anion Gap 10 mmol/L; Blood Urea Nitrogen 14 mg/dL (7-17); Calcium 8.6 mg/dL (8.4-10.2); Carbon Dioxide 21 mmol/L (22-30); Chloride 106 mmol/L (98-107); Glucose 128 mg/dL (74-99); Magnesium 1.6 mg/dL (1.6-2.3); Non-African American GFR(CKD) >90 (>60 ml/min/1.73 sqM); Sodium 137 mmol/L (137-145)
--- NOTE | 2019-10-24 07:36 | P.PN ---
Subjective This is a pleasant 44 years old female with past medical history of hypertension, osteoarthritis, chronic back pain, migraines, fibromyalgia, tubal ligation. Presents because of abdominal pain, of one day duration , all over her abdomen and felt like sharp at point in her right and left flank , and suprapubic area. Associated with loose stool 1day which looked like mashed potato as per pt, associated with nausea and vomiting about 3 times, no blood in her stool or vomiting. pt has decreased appetite i asked pt to be NPO but she feels hungry and wants to advance diet last week she was in the hospital for abd pain and says it was different as it was in RUQ and felt like sharp, she had CT abd and plevis: no sign of acute abd or pelvis. also during my exam pt was having no abd tenderness to superficial or deep palpitation while pt is been distracted she has history of chronic neck pain and status fusion surgery and that is why she is on norco currently ( home medication) she has multiple ED visits for multiple pains like headache, neck pain , migraine, low back pain , leg pain, and pelvic pain her dilaudid was lowered to morphine and pt got upset per staff, one extra dose of diaudid is provided, risk of narcotic is explained pt also was complaining from swelling in her finger, face and lips , she felt swelling in her throat, she states she takes lisinopril for years , and yesterday she ate shellfish , however with treatment , her swelling in face, lips and finger is almost resolved and they dont look swelling to me anymore. she state she is in early menopause , and her menses is becoming less and irregular , last Menstrual period was about one week ago, Vitas looks stable. Labs showing that C of 11.6 K, BMP and liver enzymes were unremarkable. Lactic acid 2.3, urine test is negative. EKG showed normal sinus rhythm at [address]-T changes. Chest x-ray: No acute. KUB:no acute intra-abdominal abnormality. her abn UA mostly related to her current disease and dehydration The emergency room chances several doses of Dilaudid. She was started on normal saline 100 mL/h and Benadryl, also she was started on Solu-Medrol. And Pepcid 10/24/2019 Patient alert awake and oriented, she had good night Sleep. This morning patient states thatHer abdominal pain, GI symptoms with nausea vomiting are completely resolved no diarrhea. No swelling in lips or throat, no finger swelling. No urinary complaints no dysuria or change in frequency habit. No chest pain or dyspnea. No other complaints. Patient she feels fine. Vitals stable. BMP from today looks normal, magnesium is 1.6. Lactic acid still mildly elevated 2.8 this morning. However patient has no symptoms. We are going to call nephrology consult for lactic acid. Objective - Vital Signs Vital signs: Vital Signs Temp 98.7 F 10/24/19 04:37 Pulse 85 10/24/19 04:37 Resp 18 10/24/19 04:37 BP 146/82 10/24/19 04:37 Pulse Ox 98 10/24/19 04:37 Intake & Output 10/23/19 10/24/19 10/24/19 18:59 06:59 18:59 Intake Total 1650 Balance 1650 Weight 81.647 kg Intake: Intake, IV Titration 1650 Amount Sodium Chloride 0.9% 1, 1150 000 ml @ 100 mls/hr IV . Q10H [facility] Rx#:[id number] Sodium Chloride 0.9% 500 500 ml 500 ml @ 999 mls/hr IV .Q31M ONE Rx#:[id number] Other: Voiding Method Toilet # Voids 1 - Exam GENERAL: The patient is alert and oriented x3, not in any acute distress. Well developed, well nourished. HEENT: Pupils are round and equally reacting to light. EOMI. No scleral icterus. No conjunctival pallor. Normocephalic, atraumatic. No pharyngeal erythema. No thyromegaly. CARDIOVASCULAR: S1 and S2 present. No murmurs, rubs, or gallops. PULMONARY: Chest is clear to auscultation, no wheezing or crackles. ABDOMEN: Soft, nontender, nondistended, normoactive bowel sounds. No palpable organomegaly. MUSCULOSKELETAL: No joint swelling or deformity. EXTREMITIES: No cyanosis, clubbing, or pedal edema. NEUROLOGICAL: Gross neurological examination did not reveal any focal deficits. SKIN: No rashes. no petechiae. - Labs CBC & Chem 7: 10/23/19 11:30 10/24/19 06:30 Labs: Abnormal Lab Results - Last 24 Hours (Table) 10/23/19 10/23/19 10/23/19 Range/Units 11:30 11:30 12:20 WBC 11.6 H (3.8-10.6) k/uL MCHC 37.5 H (31.0-37.0) g/dL Neutrophils # 8.6 H (1.3-7.7) k/uL Carbon Dioxide (22-30) mmol/L Glucose (74-99) mg/dL Plasma Lactic Acid Jesus 2.3 H* (0.7-2.0) mmol/L Urine Protein Trace H (Negative) Urine Blood Small H (Negative) Urine RBC 10 H (0-5) /hpf Hyaline Casts 13 H (0-2) /lpf Urine Mucus Rare H (None) /hpf 10/23/19 10/23/19 10/23/19 Range/Units 15:28 17:08 20:57 WBC (3.8-10.6) k/uL MCHC (31.0-37.0) g/dL Neutrophils # (1.3-7.7) k/uL Carbon Dioxide (22-30) mmol/L Glucose (74-99) mg/dL Plasma Lactic Acid Jesus 2.9 H* 2.3 H* 3.0 H* (0.7-2.0) mmol/L Urine Protein (Negative) Urine Blood (Negative) Urine RBC (0-5) /hpf Hyaline Casts (0-2) /lpf Urine Mucus (None) /hpf 10/24/19 10/24/19 10/24/19 Range/Units 00:37 04:18 06:30 WBC (3.8-10.6) k/uL MCHC (31.0-37.0) g/dL Neutrophils # (1.3-7.7) k/uL Carbon Dioxide 21 L (22-30) mmol/L Glucose 128 H (74-99) mg/dL Plasma Lactic Acid Jesus 2.9 H* 2.8 H* (0.7-2.0) mmol/L Urine Protein (Negative) Urine Blood (Negative) Urine RBC (0-5) /hpf Hyaline Casts (0-2) /lpf Urine Mucus (None) /hpf Assessment and Plan Assessment: Possible ALLERGIC reaction to lisinopril with angioedema possible mild gastroenteritis. Resolved multiple visiting to ED for pain symptoms Elevated lactic acid Dehydration, resolved Essential Hypertension Osteoarthritis Chronic back pain Migraines Fibromyalgia History of tubal ligation Plan: This is a pleasant 44 years old female who presents because of abdominal pain and possible ALLERGIC reaction, she was taken off lisinopril, we'll hold lisinopril and saw the patient and continue with Norvasc and diuretic. Patient was instructed not to use lisinopril, also to avoid shellfish, for possible ALLERGIC reaction. Lower IV fluids and if she able to inject through the day we can stop it. Since patient is asymptomatic she possibly discharged today however follow-up recommendation and clearance by nephrology team for high lactic acid. Discontinue Solu-Medrol Continue same treatment. Continue with symptomatic treatment. Resume home medication. Monitor lytes and vitals. DVT and GI prophylaxis. Further recommendations of the clinical course of the patient DVT prophylaxis: Subcutaneous heparin GI Prophylaxis: Pepcid Possible discharge today
[2019-10-24] MEDS: CYCLOBENZAPRINE 10 MG TAB PO SCH (08:34)
[2019-10-24] MEDS: FAMOTIDINE 20 MG/2 ML VIAL IV SCH (08:34)
[2019-10-24] MEDS: HEPARIN SODIUM,PORCINE 5,000 UNIT/ML 1 ML VIAL SQ SCH (08:34)
[2019-10-24] MEDS: HYDROcodone/APAP 10-325MG 1 EACH TAB PO SCH (08:35)
[2019-10-24] MEDS ORDERED: DULoxetine HCL 60 MG CAPSULE.DR PO SCH (09:00)
[2019-10-24] MEDS ORDERED: amLODIPine 10 MG TAB PO SCH (09:00)
[2019-10-24] MEDS ORDERED: HYDROCHLOROTHIAZIDE 12.5 MG CAP PO SCH (09:00)
--- NOTE | 2019-10-24 11:11 | P.NPCON ---
History of Present Illness - Reason for Consult metabolic acidosis - History of Present Illness Reason for consultation: Lactic acidosis History of present illness: Patient is a 44-year-old female seen in consultation for lactic acidosis. Patient states she ate shellfish and had about 2-3 alcoholic beverages on Thursday night. She woke up Thursday morning and felt abdominal cramping. She was also nauseous. Patient's felt that her throat was swelling up. She denies any vomiting or diarrhea. She admits to good urine output. Denies any gross hematuria. Patient called EMS and she was given a dose of IV Solu-Medrol, IV Benadryl, also IV Toradol. In the ER she received normal saline bolus and then was put on maintenance IV fluids. She also received a dose of epinephrine. Patient denies any history of liver disease. No significant hypotension noted. No hypoxia noted. No edema. No personal or family history of renal disease. No history of COPD or asthma. No history of HIV or malignancy. Vital signs are stable. General: The patient appeared well nourished and normally developed. HEENT: Head exam is unremarkable. Neck is without jugular venous distension. LUNGS: Lungs are clear to auscultation and percussion. Breath sounds decreased. HEART: Rate and Rhythm are regular. First and second heart sounds normal. No murmurs, rubs or gallops. ABDOMEN: Abdominal exam reveals normal bowel sounds. Non-tender and non- distended. No evidence of peritonitis. EXTREMITITES: No clubbing, cyanosis, or edema. Past Medical History Past Medical History: Fibromyalgia, Hypertension, Osteoarthritis (OA) Additional Past Medical History / Comment(s): chronic back pain, scoliosis, migraines, colitis, History of Any Multi-Drug Resistant Organisms: None Reported Past Surgical History: Bladder Surgery, Orthopedic Surgery, Tubal Ligation Additional Past Surgical History / Comment(s): cervical fusion, Lt knee arthroscopy, colonoscopy, bladder suspension, lower back nerve ending surgery Past Anesthesia/Blood Transfusion Reactions: Family History of Problems w/ Anesthesia Additional Past Anesthesia/Blood Transfusion Reaction / Comment(s): father has PONV Smoking Status: Former smoker - Past Family History Mother Family Medical History: No Reported History Additional Family Medical History / Comment(s): Mother is healthy. Father Family Medical History: Cancer Additional Family Medical History / Comment(s): Prostate cancer Medications and Allergies Home Medications Medication Instructions Recorded Confirmed Type Gabapentin [Neurontin] 600 mg PO TID 11/01/17 10/23/19 History HYDROcodone/APAP 10-325MG [[place] 1 tab PO BID 11/01/17 10/23/19 History 10-325] Cyclobenzaprine [Flexeril] 10 mg PO BID 10/23/19 10/23/19 History DULoxetine HCL [Cymbalta] 60 mg PO DAILY 10/23/19 10/23/19 History Hydrochlorothiazide 12.5 mg PO DAILY 10/23/19 10/23/19 History Lisinopril 40 mg PO DAILY 10/23/19 10/23/19 History QUEtiapine [SEROquel] 200 mg PO HS 10/23/19 10/23/19 History amLODIPine [Norvasc] 10 mg PO DAILY 10/23/19 10/23/19 History busPIRone HCL 15 mg PO TID PRN 10/23/19 10/23/19 History Allergies Allergy/AdvReac Type Severity Reaction Status Date / Time lisinopril Allergy Swelling Verified 10/23/19 16:13 Physical Exam Vitals: Vital Signs Temp Pulse Pulse Resp BP BP Pulse Ox 10/24/19 04:37 98.7 F 85 18 146/82 98 10/23/19 22:34 18 10/23/19 20:54 98.8 F 84 18 142/80 97 10/23/19 15:24 98.1 F 89 12 127/79 97 10/23/19 14:43 91 16 122/80 97 10/23/19 12:59 93 18 138/90 99 10/23/19 12:30 96 20 149/94 99 10/23/19 11:52 20 10/23/19 11:41 98.3 F 91 20 115/86 99 10/23/19 11:08 98.9 F 95 18 113/83 99 Intake and Output 10/23/19 10/24/19 10/24/19 22:59 06:59 14:59 Intake Total 850 800 Balance 850 800 Intake: Intake, IV Titration 850 800 Amount Sodium Chloride 0.9% 1, 350 800 000 ml @ 100 mls/hr IV . Q10H [facility] Rx#:[id number] Sodium Chloride 0.9% 500 500 ml 500 ml @ 999 mls/hr IV .Q31M [facility] Rx#:[id number] Other: Voiding Method Toilet # Voids 1 Weight 81.647 kg Results - Lab Results Most recent lab results Calcium 8.6 mg/dL (8.4-10.2) 10/24/19 06:30 Magnesium 1.6 mg/dL (1.6-2.3) 10/24/19 06:30 10/23/19 11:30 10/24/19 06:30 Assessment and Plan Plan: Assessment: 1. Lactic acidosis. Unclear cause. This can be due to the epinephrine she received which can increase lactate production in the cup. She is not albuterol. No evidence of hypotension, hypoxia or sepsis. No history of liver disease. She is on a low-dose of hydrochlorothiazide but does not appear volume depleted. No history of HIV or malignancy. No significant alcohol use. 2. Anaphylactic reaction possibly to shellfish versus lisinopril. 3. Benign hypertension. Controlled. Plan: Maintain normal saline at 50 mL an hour. Discontinue hydrochlorothiazide. Add hydralazine. Repeat lactic acid level in a week. If no improvement, will need further workup at a tertiary care center to further look into causes of type B lactic acidosis. Thank you for the consultation. I will continue to follow the patient during her hospital stay.
[2019-10-24 11:35] VITALS: BP 143/82; PULSE 101; RESP 20; TEMP 99.3
[2019-10-24] MEDS ORDERED: IBUPROFEN 400 MG TAB PO PRN (11:42)
[2019-10-24] MEDS ORDERED: hydrALAZINE HCL 25 MG TAB PO SCH (21:00)
== END 2019-10-24 13:50 | disposition home or self-care (01) ==
LOC: EC 10:57 → 5NMEDONC 14:06
PROVIDERS: ADMIT Internal Medicine; ATTEND Internal Medicine
DX: T78.40XA Allergy, unspecified, initial encounter (principal); R10.9 Unspecified abdominal pain; R11.2 Nausea with vomiting, unspecified; E86.0 Dehydration; R74.0 Nonspecific elevation of levels of transaminase and lactic acid dehydrogenase [LDH]; M79.7 Fibromyalgia; I10 Essential (primary) hypertension; G89.29 Other chronic pain; M19.90 Unspecified osteoarthritis, unspecified site; M41.9 Scoliosis, unspecified; F31.9 Bipolar disorder, unspecified; Z87.891 Personal history of nicotine dependence; Z98.1 Arthrodesis status; X58.XXXA Exposure to other specified factors, initial encounter; Z79.891 Long term (current) use of opiate analgesic; Z79.899 Other long term (current) drug therapy; Z88.8 Allergy status to other drugs, medicaments and biological substances; Z80.42 Family history of malignant neoplasm of prostate
CPT/HCPCS: 96376 ×2; 96361 ×2; 96372 ×3; 96375 ×2; 96365; 96366; 99285; 36415; 93005; 80053; 80048; 83605 ×2; 83690; 83735; 85025; 81001; 81025; 84703; 71046; 74018; G0378 ×2; J0171; J2270; J1200 ×2; J1644 ×2; J2920 ×2; J2405; J1170 ×2

== ENCOUNTER → 2020-08-20 | Outpatient (CLI) | payer OTHER ==
[2020-08-20 09:25] VITALS: BP 148/99; PULSE 80; RESP 18; TEMP 98.6
--- NOTE | 2020-08-20 09:59 | P.PAINCN ---
History of Present Illness - Reason for Consult Consult date: 08/20/20 - History of Present Illness This is a 45-year-old patient referred by for low back pain. History of chronic pain since she was 16 she was diagnosed with scoliosis. She also the past medical history of migraines, fibromyalgia, and bipolar disorder well controlled with medication. She also has a history of chronic neck pain with a neck fusion of C4 through C6 in 2010. In regards to her pain complaint today pain is located in the low back with occasional radiation into the groin and down to the knees. Pain is described as sharp and stabbing and constant throughout the day. She does feel weakness in her bilateral lower extremities although she attributes this to pain. Pain is worse with seated position and going up stairs. Overall she does feel little bit better when she gets out of a chair and walks around. Her pain is currently a 7 out of 10, at best 5 out of 10, at worst a 10 out of 10. In terms of her management, she has seen several pain clinics in the past and has had some procedures which she called nerve blocks as well as lumbar radiofrequency ablations. These only helped for about a few weeks. She currently takes [place] 10 3 times a day and gabapentin 600 mg 3 times a day from her primary care provider. Tried seeing chiropractor and Physical therapy with limited benefit. Also uses Biofreeze, a TENS unit and occasional marijuana use. She did receive some type of steroid injection 2-3 months ago from her primary care provider which did help some. Patient denies adverse drug effects from medications. Patient also denies new- onset weakness, bowel/bladder incontinence, or any other signs or symptoms of cauda equina syndrome. There are no signs of acute intoxication, and no indications of medication diversion or overuse. In addition to above, 13-point review of systems is also negative for chest pain, shortness of breath, changes in vision, changes in hearing, new onset weakness, abdominal pain, diarrhea, extreme fatigue, malaise, fever, skin changes, homicidal or suicidal ideation, or bowel or bladder incontinence. Physical exam: Vital Signs: Reviewed in EMR GENERAL: Well appearing, in no acute distress PSYCH: Mood and affect is appropriate. Awake, alert, and oriented SKIN: Skin color, texture, turgor normal, no rashes or lesions HEENT: Normocephalic, atraumatic. EOM intact CV: No pedal edema RESP: Respirations are unlabored, no audible wheezing GI: Abdomen normal MUSCULOSKELETAL: 4/5 strength on left hip flexion. Otherwise 5/5 No atrophy or tone abnormalities are noted. Lumbar spine: Straight leg raising in the sitting position is positive for low back pain. pain to palpation over the lumbar spine and paraspinous muscles. positive for pain with facet loading and back extension/rotation. Normal range of motion without pain reproduction Buttocks: pain to palpation over the PSIS, Reggie test ispositive bilaterally Extremities: Peripheral joint ROM is full and pain free without obvious instability or laxity in all four extremities. No edema or skin discolorations noted. Gait: Gait is normal NEUR: Bilateral upper and lower extremity coordination and muscle stretch reflexes are physiologic and symmetric. Negative clonus. No loss of sensation is noted. Cranial nerves are grossly intact. Imaging: Cervical spine X-ray 2018 ACDF present from C5 to C7 with spacer placement Lumbar MRI 2018 L3-L4: Far lateral left disc herniation past the lateral recess narrowing the left neural foramen. Mild facet arthropathy and ligamentum flavum buckling is also seen. No spinal canal stenosis. L4-L5: Broad-based disc bulge and mild facet arthropathy with ligamentum flavum buckling resulting in minimal bilateral neural foraminal narrowing. No spinal canal stenosis. L5-S1: Right eccentric broad-based disc bulge with mild facet arthropathy. No significant spinal canal stenosis or neural foraminal narrowing. Assessment: 1. Low back pain 2. Fibromyalgia Plan: 1. Explanation: Diagnoses, prognoses, and multiple treatment options including but not limited to physical therapy, interventional therapies, medication management and surgery were discussed with the patient and all questions were answered to the patient's satisfaction. 2. Investigations: Last MRI was in 2018 which did show some findings at L3-L4. Can consider repeat MRI in the future if needed 3. Counseling: The patient was counseled for 3 minutes on EXERCISE. Specifically, the patient was instructed regarding the importance of exercise in the context of both chronic pain and overall health. 4. Procedures: Proceed with bilateral sacroiliac joint injection. If this does not work, can consider left L3-L4 transforaminal epidural steroid injection. I would not proceed with lumbar medial branch block as this did not help with her in the past 5. Consultations: None 6. Medications: She does have centralized pain as well and is possible that her injections will not help. He can consider starting her on Cymbalta in the future. 7. Disposition: For bilateral sacroiliac joint injections Past Medical History Past Medical History: Fibromyalgia, Hypertension, Osteoarthritis (OA) Additional Past Medical History / Comment(s): chronic back pain, scoliosis, migraines, colitis, History of Any Multi-Drug Resistant Organisms: None Reported Past Surgical History: Bladder Surgery, Orthopedic Surgery, Tubal Ligation Additional Past Surgical History / Comment(s): cervical fusion, Lt knee art hroscopy, colonoscopy, bladder suspension, lower back nerve ending surgery Past Anesthesia/Blood Transfusion Reactions: Family History of Problems w/ Anesthesia Additional Past Anesthesia/Blood Transfusion Reaction / Comm: father has PONV Past Psychological History: Bipolar Past Alcohol Use History: Occasional Past Drug Use History: None Reported - Past Family History Mother Family Medical History: No Reported History Additional Family Medical History / Comment(s): Mother is healthy. Father Family Medical History: Cancer Additional Family Medical History / Comment(s): Prostate cancer Medications and Allergies Home Medications Medication Instructions Recorded Confirmed Type Gabapentin [Neurontin] 600 mg PO TID 11/01/17 10/23/19 History HYDROcodone/APAP 10-325MG [[place] 1 tab PO TID 11/01/17 10/23/19 History 10-325] DULoxetine HCL [Cymbalta] 60 mg PO DAILY 10/23/19 10/23/19 History Hydrochlorothiazide 12.5 mg PO DAILY 10/23/19 10/23/19 History [hydroCHLOROthiazide] QUEtiapine [SEROquel] 200 mg PO HS 10/23/19 10/23/19 History amLODIPine [Norvasc] 10 mg PO DAILY 10/23/19 10/23/19 History Famotidine [Pepcid] 20 mg PO BID 5 Days #10 tablet 10/24/19 Rx Ibuprofen [Motrin] 400 mg PO TID PRN #9 tab 10/24/19 Rx lamoTRIgine [LaMICtal] 100 mg pe PO 08/20/20 History Allergies Allergy/AdvReac Type Severity Reaction Status Date / Time lisinopril Allergy Swelling Verified 08/20/20 09:11 PQRS Measure Charge Sheet PQRS Narrative: Smoking Status Former smoker Home Medications: Ambulatory Orders Gabapentin [Neurontin] 600 mg PO TID 11/01/17 HYDROcodone/APAP 10-325MG [[place] 10-325] 1 tab PO TID 11/01/17 DULoxetine HCL [Cymbalta] 60 mg PO DAILY 10/23/19 Hydrochlorothiazide [hydroCHLOROthiazide] 12.5 mg PO DAILY 10/23/19 QUEtiapine [SEROquel] 200 mg PO HS 10/23/19 amLODIPine [Norvasc] 10 mg PO DAILY 10/23/19 Famotidine [Pepcid] 20 mg PO BID 5 Days #10 tablet 10/24/19 Ibuprofen [Motrin] 400 mg PO TID PRN #9 tab 10/24/19 lamoTRIgine [LaMICtal] 100 mg pe PO 08/20/20
== END | disposition home or self-care (01) ==
LOC: PNWHC3 08:13
PROVIDERS: ATTEND Anesthesiology
DX: M79.7 Fibromyalgia (principal); M54.5 Low back pain; I10 Essential (primary) hypertension; M19.90 Unspecified osteoarthritis, unspecified site; Z79.891 Long term (current) use of opiate analgesic; Z79.899 Other long term (current) drug therapy; Z88.8 Allergy status to other drugs, medicaments and biological substances; Z87.891 Personal history of nicotine dependence
CPT/HCPCS: 99211

== ENCOUNTER 2020-09-11 12:16 | Day surgery (SDC) | payer OTHER ==
[2020-09-11] MEDS ORDERED: LIDOCAINE 1% (10MG/ML) FOR IV START INTRADERMA ONE (13:18)
[2020-09-11 13:33] VITALS: TEMP 97.7
[2020-09-11] MEDS ORDERED: fentaNYL (PF) 50 MCG/ML 2 ML AMP ONE (13:35)
[2020-09-11] MEDS ORDERED: ROPIVACAINE 5MG/ML 20ML VIAL ONE (13:35)
[2020-09-11] MEDS ORDERED: MIDAZOLAM 2 MG/2 ML VIAL ONE (13:35)
[2020-09-11] MEDS ORDERED: TRIAMCINOLONE ACETONIDE 40 MG/ML 1 ML VIAL ONE (13:35)
--- NOTE | 2020-09-11 13:48 | P.PCN ---
Date of Procedure: 09/11/20 Surgeon: Michele Paredes Pathology: none sent Condition: stable Disposition: PACU Description of Procedure: Preoperative diagnoses= bilateral sacroiliac joint dysfunction and sacroiliitis Postoperative diagnoses= same as preoperative diagnosis. Procedure= bilateral sacroiliac joint steroid injection under fluoroscopic guidance. Anesthesia= local anesthesia with lidocaine 1% and IV moderate conscious sedation with fentanyl and Versed Estimated blood loss=minimal. Procedure indication= the patient had a history of severe chronic low back pain, diagnosed with sacroiliitis and lumbar sacral facet arthropathy unresponsive to conservative treatment. Procedure description= the patient was seen and identified in the preoperative holding area, risks and benefits and alternative of the procedure and possible complications discussed with the patient, patient signed the consent. an IV was started, and vital signs were monitored and were stable throughout the p rocedure, patient was placed in the prone position or table and the lumbosacral area was prepped and draped with a sterile fashion, vital signs were closely monitored during the procedure.The Rt sacroiliac joint was identified on the AP view of fluoroscopy then the C-arm was tilted to the contralateral oblique position to superimpose the anterior and posterior joint lines on each other and to have a unified joint line with the target point at the inferior one third of this line. I used 22-gauge 3-1/2 inch Quincke spinal needle for this procedure and after getting into the sacroiliac joint I injected 20 mg of Kenalog +2 MLS of Ropivacaine 0.5%. The opposite side was then done in the same manner with a total dose of Kenalog for this procedure as 40 mg. Patient tolerated the procedure well without any complication. The patient has a poorly controlled hypertension. She is to follow up with her primary care physician for better control. The patient returned to supine position after the back was cleaned and a Band- Aid applied, the patient transported to recovery room in stable condition and he was monitored for 30 minutes before she was discharged home in stable condition . patient will follow up with the pain clinic in a few weeks. A copy of the needle placement was saved to the C-arm machine.
[2020-09-11 13:52] VITALS: RESP 16
--- NOTE | 2020-09-11 14:11 | FL ---
Fluoroscopy HISTORY: Pain 6 seconds fluoroscopy time supplied to the referring clinician. 2 intraoperative C-arm images docume nt the procedure. See dictated report from anesthesia.
[2020-09-11 14:22] VITALS: BP 172/103; PULSE 65
[2020-09-11] MEDS ORDERED: IV FLUID CONTINUATION 1,000 ML IV ONE (14:36)
== END 2020-09-11 14:41 | disposition home or self-care (01) ==
LOC: ORPAIN 12:16
PROVIDERS: ATTEND Anesthesiology
DX: G89.29 Other chronic pain (principal); M46.1 Sacroiliitis, not elsewhere classified; M53.3 Sacrococcygeal disorders, not elsewhere classified; M47.817 Spondylosis without myelopathy or radiculopathy, lumbosacral region; I10 Essential (primary) hypertension; Z88.8 Allergy status to other drugs, medicaments and biological substances
CPT/HCPCS: 81025; J2250; J3301; J3010; J2795; G0260

== ENCOUNTER → 2020-10-10 | Outpatient (CLI) | payer OTHER ==
[2020-10-10 09:06] VITALS: BP 148/98; PULSE 89; RESP 18; TEMP 98
--- NOTE | 2020-10-10 09:19 | P.PN ---
Subjective Progress Note Date: 10/10/20 This is a 45-year-old lady with history of lower back pain and fibromyalgia. The patient had multiple lumbar medial branch RFAs before at a different clinic clinic and did not have any significant relief of her pain however we did bilateral sacroiliac joint steroid injection here in our clinic which resulted in significant pain relief as a matter of fact the patient is very happy today with the results and she mentions that she is able to do more of her daily activities in a more comfortable way. Her pain level today is to out of 10 and used to be much worse than that. She was diagnosed with fibromyalgia 10 years ago and she's been taking Cymbalta. She still works full-time. Patient denies new-onset weakness, bowel/bladder incontinence, or any other signs or symptoms of cauda equina syndrome. There are no signs of acute intoxication, and no indications of medication diversion or overuse. In addition to above, 13-point review of systems is also negative for chest pain, shortness of breath, changes in vision, changes in hearing, new onset weakness, abdominal pain, diarrhea, extreme fatigue, malaise, fever, skin changes, homicidal or suicidal ideation, or bowel or bladder incontinence. Vital Signs: Reviewed in EMR Gen: AAOx3, NAD HEENT: PERRLA,hearing grossly normal Pulm: resp unlabored Neck: supple, trachea midline Neuro exam of the lower extremities: Normal bilaterally Straight leg raising test: Negative bilaterally Pasquale's test: Range of motion of the lumbar spine: Facet loading test: Tenderness in the paravertebral musculature: Neuro: CN II-XII grossly intact, Imaging: Reviewed in EMR/chart Assessment: Bilateral sacroiliitis Myofascial pain Fibromyalgia Lumbago Plan: 1. Explanation: Opioid and psychological risk scores were reviewed. Diagnoses, prognoses, and multiple treatment options including but not limited to physical therapy, interventional therapies, adjuvant medical therapies, narcotic medication therapies, and surgery were discussed with the patient and all questions were answered to the patient's satisfaction. 2. Opioid agreement: Signed with the patient and the patient is warned not to use opioids while driving or before driving and not to combine opioids with benzodiazepines or alcohol. 3. Counseling: The patient was counseled extensively on SMOKING CESSATION, BODY MASS INDEX, EXERCISE. Specifically, the patient was instructed regarding the importance of smoking cessation, obesity, and exercise in the context of both chronic pain and overall health. 4. Procedures: Repeat the lateral [place] joint steroid injection if her pain gets worse. 5. Consultations: None 6. Investigations: None 7. Medications: None 8. Disposition: Return to clinic as needed 9. Maps were reviewed and were appropriate. Objective - Vital Signs Vital signs: Vital Signs Temp 98.0 F 10/10/20 09:01 Pulse 89 10/10/20 09:01 Resp 18 10/10/20 09:01 BP 148/98 10/10/20 09:01 Pulse Ox 99 10/10/20 09:01
== END | disposition home or self-care (01) ==
LOC: PNWHC3 08:51
PROVIDERS: ATTEND Anesthesiology
DX: M46.1 Sacroiliitis, not elsewhere classified (principal); M79.7 Fibromyalgia; M54.5 Low back pain
CPT/HCPCS: 99211

== ENCOUNTER → 2021-01-23 | Outpatient (CLI) | payer OTHER ==
[2021-01-23 11:33] VITALS: BP 153/102; PULSE 85; RESP 18; TEMP 98
--- NOTE | 2021-01-23 11:55 | P.PN ---
Subjective Progress Note Date: 01/23/21 This is a follow-up visit for this 45 years old female with a chronic history of severe low back pain, she is diagnosed with bilateral sacroiliitis, and lumbar degenerative disc disease, and lumbar spondylosis with lumbar facet arthropathy, previously we have done bilateral sacroiliac joint steroid injection she gets good pain relief, and currently she is complaining of severe low back pain with addition to the buttock area bilaterally more prominent on the left side, she denies any fever or night sweats which she denies any motor or sensory deficit she denies any change in the bowel movement or urination, the pain is constant and increased with any activities especially walking or going up stairs or going down stairs, which is aggravated her pain Objective - Vital Signs Vital signs: Vital Signs Temp 98.0 F 01/23/21 11:31 Pulse 85 01/23/21 11:31 Resp 18 01/23/21 11:31 BP 153/102 01/23/21 11:31 Pulse Ox 96 01/23/21 11:31 - Exam Physical Examinations : -Constitutiona : Cooperative , not in acute distress . -HEENT : nech : supple , no Lymphadenopathy , normal thyroid size . : eyes : no ptosis , no icterus, no photophobia . - neurologic : Cranial nerve II to XII intact , no focal neurological deffecit . -psychatric : alert , oriented X 3 , appropriate affect , intact judgment and insight . -Lymphatic : no Lymphadenopathy . - musculoskeltal : . Lumber spine moter stegnth lower extremities ,thigh and legs 5/5 Right side , 5/5 Left side deep tendon reflexes : normal Knee J erk , normal ankle Jerk lumber facet Loading Test =positive Right , positive Left Range of motion of the lumbar spine Flexion 30 degrees, extension 10 degrees strait leg raising test = negative bilaterally Fabere test= negative bilaterally. Sever tenderness over the Sacroiliac joint on the Right , and Left sides Gaenslen test= positive right ,and positive left . Seated flexion test= positive right ,and positive Left . Distraction test= positive bilaterally Sacroiliac compression test= positive bilaterally Tenderness in the lumbar paraspinal muscles b ilaterally MRI of the lumbar spine multilevel lumbar degenerative disc disease and multilevel lumbar facet arthropathy Assessment and Plan Plan: Assessment and plan=1-bilateral sacroiliitis 2-lumbar spondylosis with lumbar facet arthropathy without myelopathy 3-lumbar degenerative disc disease. 4-myofascial pain syndrome lumbar paraspinal muscles. Patient could benefit from bilateral sacroiliac joint steroid injection under fluoroscopy guidance She could benefit from muscle relaxant Zanaflex 4 mg when necessary twice a day - PQRS measures = - Patient's medications are documented in the chart. -Tobacco use is ,negative and counseling.Given. -Patient's has not received pneumococcal vaccine. -Advanced care planning discussed, patient not eligible. -Opiate contract not signed. -Pain positive and follow-up visit/procedure is scheduled. -Patient's blood pressure measured [ 153/102] , and documented in the record ,and patient will follow up with the primary care. -Patient's weight was measured and body mass index [31.5 ] above the normal limits and counseling was done. and patient instructed to follow-up with the primary care physician. -Patient was not identified as an unhealthy alcohol user Time with Patient: Less than 30
== END ==
LOC: PNWHC3 10:58
PROVIDERS: ATTEND Specialist
DX: M47.816 Spondylosis without myelopathy or radiculopathy, lumbar region (principal); M51.36 Other intervertebral disc degeneration, lumbar region; M46.1 Sacroiliitis, not elsewhere classified; M79.18 Myalgia, other site; Z87.891 Personal history of nicotine dependence
CPT/HCPCS: 99211

== ENCOUNTER 2021-02-12 12:31 | Day surgery (SDC) | payer OTHER ==
[2021-02-11 12:18] VITALS: BMI 29.0
[2021-02-12 12:59] VITALS: RESP 18; TEMP 97.8
[2021-02-12] MEDS ORDERED: LACTATED RINGERS 1,000 ML IV ONE (13:00)
[2021-02-12] MEDS ORDERED: LIDOCAINE 1% (10MG/ML) FOR IV START INTRADERMA ONE (13:05)
[2021-02-12] MEDS ORDERED: IOPAMIDOL M200 10 ML VIAL ONE (13:47)
[2021-02-12] MEDS ORDERED: MIDAZOLAM 2 MG/2 ML VIAL ONE (13:47)
[2021-02-12] MEDS ORDERED: fentaNYL (PF) 50 MCG/ML 2 ML AMP ONE (13:47)
[2021-02-12] MEDS ORDERED: TRIAMCINOLONE ACETONIDE 40 MG/ML 1 ML VIAL ONE (13:47)
[2021-02-12] MEDS ORDERED: LACTATED RINGERS 1,000 ML IV SCH (14:00)
--- NOTE | 2021-02-12 14:00 | P.OP ---
Date of Procedure: 02/12/21 Description of Procedure: PREOPERATIVE DIAGNOSIS: Sacroiliac joint dysfunction POSTOPERATIVE DIAGNOSIS: Sacroiliac joint dysfunction. PROCEDURES: 1. Bilateral Sacroiliac joint steroid injection 2. Sacroiliac joint arthrogram. SURGEON: Zay Duque ANESTHESIA: Local and IV sedation : Versed and fentanyl. EBL: None. Specimen removed: None Fluoroscopic image: saved to electronic medical records. PROCEDURE INDICATIONS: This patient with a history of chronic low back pain, and sacroiliac joint dysfunction. Patient tried conservative therapy. Came here for intervention management. PROCEDURE DESCRIPTION: The patient was seen and identified in the preoperative area. Risks, benefits, complications, and alternatives were discussed with the patient. The patient agreed to proceed with the procedure and signed the consent. IV was started, and vital signs were stable. Patient was taken to the OR and time out was completed. The patient was placed in the prone position on procedure table and a pillow was placed under the abdomen to reduce lumbar lordosis. The lumbosacral area was prepped and draped in the usual sterile fashion. Critical pause was taken. Vital signs were closely monitored during the procedure. For the right side, the fluoroscopic camera was placed in left oblique view and right SI joint lower pole was identified. Skin entry point was infiltrated with 1% lidocaine and 22-gauge 3.5 inch spinal needle was introduced into the inferior one-third of SI joint and after penetrating into the joint arthrogram was done. 0.5 ml of [id number] contrast was injected after negative aspiration for blood, and air and negative for paresthesia. Good spread of the contrast into the SI joint has been seen. Then again after negative aspiration of spinal fluid and blood and negative for neurological symptoms, 3 mL of a solution containing total 2.5 mL of 1% preservative-free lidocaine mixed with 20 mg of Kenalog was injected. The entire procedure was repeated on the left side as above. Needle was withdrawn intact. Skin was cleansed, and bandages were applied. COMPLICATIONS: None. DISPOSITION / PLANS: The patient was placed in a supine position and transferred to the recovery area in a stable condition for observation and was discharged from the recovery room after meeting discharge criteria. Home discharge instructions given to the patient by the staff. The patient was reexamined prior to discharge. The patient will schedule for follow-up visit with the pain clinic in 4 weeks duration. Plan - Discharge Summary Discharge Rx Participant: No New Discharge Prescriptions: No Action HYDROcodone/APAP 10-325MG [[place] 10-325] 1 tab PO TID PRN PRN Reason: Pain DULoxetine HCL [Cymbalta] 60 mg PO DAILY QUEtiapine [SEROquel] 150 mg PO HS Hydrochlorothiazide [hydroCHLOROthiazide] 12.5 mg PO DAILY PRN PRN Reason: Edema lamoTRIgine [LaMICtal] 100 mg pe PO HS Losartan [Cozaar] 100 mg PO DAILY Escitalopram [Lexapro] 10 mg PO DAILY Triamterene Tab 37.5 mg PO DAILY carvediloL [Coreg] 6.25 mg PO HS Discharge Medication List HYDROcodone/APAP 10-325MG [[place] 10-325] 1 tab PO TID PRN 11/01/17 [History] DULoxetine HCL [Cymbalta] 60 mg PO DAILY 10/23/19 [History] Hydrochlorothiazide [hydroCHLOROthiazide] 12.5 mg PO DAILY PRN 10/23/19 [History] QUEtiapine [SEROquel] 150 mg PO HS 10/23/19 [History] lamoTRIgine [LaMICtal] 100 mg pe PO HS 08/20/20 [History] Escitalopram [Lexapro] 10 mg PO DAILY 10/08/20 [History] Losartan [Cozaar] 100 mg PO DAILY 10/08/20 [History] Triamterene Tab 37.5 mg PO DAILY 01/21/21 [History] carvediloL [Coreg] 6.25 mg PO HS 01/21/21 [History] Discharge/Stand Alone Forms: [facility] Pain/[facility] Instructions
[2021-02-12] MEDS ORDERED: IV FLUID CONTINUATION 1,000 ML IV ONE (14:03)
[2021-02-12 14:20] VITALS: BP 143/97; PULSE 69
--- NOTE | 2021-02-12 14:54 | FL ---
Fluoroscopy HISTORY: Pain 3 seconds fluoroscopy time supplied to the referring clinician. 2 intraoperative C-arm images docume nt the procedure. See dictated report from anesthesia.
== END 2021-02-12 14:35 | disposition home or self-care (01) ==
LOC: ORPAIN 12:31
DX: G89.29 Other chronic pain (principal); M53.3 Sacrococcygeal disorders, not elsewhere classified; I10 Essential (primary) hypertension; F31.9 Bipolar disorder, unspecified; Z88.8 Allergy status to other drugs, medicaments and biological substances
CPT/HCPCS: J2250; J3301; J3010; Q9966; G0260

== ENCOUNTER → 2021-08-12 | Outpatient (CLI) | payer OTHER ==
[2021-08-12 08:22] VITALS: PULSE 84; RESP 18; TEMP 97.3
[2021-08-12 08:38] VITALS: BP 154/111
--- NOTE | 2021-08-12 08:42 | P.PN ---
Subjective Progress Note Date: 08/12/21 Kyleigh is a 46-year-old female presenting to clinic today for a follow-up appointment for her continued chronic low back pain. Last visit in the clinic was February 2021 where she had bilateral SI joint injections. She reported that she's had greater than 50% relief with those injections over the last 6 months however her pain is beginning to return in that low back area with intermittent radiation down her left leg. She reports that she's been doing with this pain for many years. She describes it as a sharp deep, achy sensation in her low back that radiates into her groin. Pain is aggravated while she does her daily activities including housework chores and gardening. Sitting for long period of time also increases her pain. Her pain is relieved when she is able to sit in certain positions as well as lay flat, and periodic use a back brace. In the past she has had SI joint injections with good relief, physical therapy which she does at home exercises now and medications including [place] from her primary care provider. Today she rates her pain as 7 out of 10 on a 0-to-10 scale. With interventions her pain is reduced to 3 out of 10. Objective - Vital Signs Vital signs: Vital Signs Temp 97.3 F L 08/12/21 08:17 Pulse 84 08/12/21 08:17 Resp 18 08/12/21 08:17 BP Pulse Ox 98 08/12/21 08:17 - Exam Physical Examinations : -Constitutiona : Cooperative , not in acute distress . -HEENT : nech : supple , no Lymphadenopathy , normal thyroid size . : eyes : no ptosis , no icterus, no photophobia . - neurologic : Cranial nerve II to XII intact , no focal neurological deffecit . -psychatric : alert , oriented X 3 , appropriate affect , intact judgment and insight . -Lymphatic : no Lymphadenopathy . - musculoskeltal : moter stegnth lower extremities ,thigh and legs 5/5 Right side , 5/5 Left side deep tendon reflexes : normal Knee Jerk , normal ankle Jerk lumber facet Loading Test =positive Right , positive Left Range of motion of the lumbar spine Flexion 30 degrees, extension 10 degrees strait leg raising test = positive at 20 degree Fabere test= positive Right , and positive LT . Sever tenderness over the Sacroiliac joint on the Right , and Left sides Gaenslen test= positive right ,and positive left . Seated flexion test= positive right ,and positive Left . Distraction test= positive bilaterally Sacroiliac compression test= positive bilaterally Assessment and Plan Assessment: Assessment and plan Assessment: 1-bilateral sacroiliitis 2-lumbar spondylosis with lumbar facet arthropathy without myelopathy 3-lumbar degenerative disc disease. 4-myofascial pain syndrome lumbar paraspinal muscles. Plan: Patient could benefit from bilateral sacroiliac joint steroid injection under fluoroscopy guidance In the future consider lumbar transforaminal epidural injection left side at L3 4 Patient was discussing possible use of spinal cord stimulator in the future. Her father had 1 that helped him and she was considering if that would be her long-term treatment plan - PQRS measures = - Patient's medications are documented in the chart. -Tobacco use is negative -Patient's has not received pneumococcal vaccine. -Advanced care planning discussed, patient not eligible. -Opiate contract signed. -Pain positive and follow-up visit/procedure is scheduled. -Patient's blood pressure measured 154/111 , and documented in the record ,and patient will follow up with the primary care. She reports she did not take her high blood pressure medication this morning -Patient was not identified as an unhealthy alcohol user Time with Patient: Less than 30
== END ==
LOC: PNWHC3 07:51
PROVIDERS: ATTEND Student in an Organized Health Care Education/Training Program
DX: M46.1 Sacroiliitis, not elsewhere classified (principal); M47.816 Spondylosis without myelopathy or radiculopathy, lumbar region; M51.36 Other intervertebral disc degeneration, lumbar region; G89.29 Other chronic pain; M79.18 Myalgia, other site
CPT/HCPCS: 99211

== ENCOUNTER 2021-09-24 09:44 | Day surgery (SDC) | payer OTHER ==
[2021-09-24 10:09] VITALS: RESP 16; TEMP 97.2
[2021-09-24] MEDS ORDERED: LACTATED RINGERS 1,000 ML IV ONE (10:09)
[2021-09-24] MEDS ORDERED: fentaNYL (PF) 50 MCG/ML 2 ML AMP ONE (10:31)
[2021-09-24] MEDS ORDERED: TRIAMCINOLONE ACETONIDE 40 MG/ML 1 ML VIAL ONE (10:31)
[2021-09-24] MEDS ORDERED: ROPIVACAINE 5MG/ML 20ML VIAL ONE (10:31)
[2021-09-24] MEDS ORDERED: IOPAMIDOL M200 10 ML VIAL ONE (10:31)
[2021-09-24] MEDS ORDERED: MIDAZOLAM 2 MG/2 ML VIAL ONE (10:31)
[2021-09-24] MEDS ORDERED: LACTATED RINGERS 1,000 ML IV SCH (10:45)
--- NOTE | 2021-09-24 10:47 | P.PCN ---
Date of Procedure: 09/24/21 Description of Procedure: PREOPERATIVE DIAGNOSIS: Sacroiliac joint dysfunction POSTOPERATIVE DIAGNOSIS: Sacroiliac joint dysfunction. PROCEDURES: 1. Bilateral Sacroiliac joint steroid injection 2. Sacroiliac joint arthrogram. SURGEON: Zay Duque ANESTHESIA: Local and IV sedation : Versed 2 mg, and fentanyl 100 g. EBL: None. Specimen removed: None Fluoroscopic image: saved to electronic medical records. PROCEDURE INDICATIONS: This patient with a history of chronic low back pain, and sacroiliac joint dysfunction. Patient tried conservative therapy. Came here for intervention management. PROCEDURE DESCRIPTION: The patient was seen and identified in the preoperative area. Risks, benefits, complications, and alternatives were discussed with the patient. The patient agreed to proceed with the procedure and signed the consent. IV was started, and vital signs were stable. Patient was taken to the OR and time out was completed. The patient was placed in the prone position on procedure table and a pillow was placed under the abdomen to reduce lumbar lordosis. The lumbosacral area was prepped and draped in the usual sterile fashion. Critical pause was taken. Vital signs were closely monitored during the procedure. For the right side, the fluoroscopic camera was placed in left oblique view and right SI joint lower pole was identified. Skin entry point was infiltrated with 1% lidocaine and 22-gauge 3.5 inch spinal needle was introduced into the inferior one-third of SI joint and after penetrating into the joint arthrogram was done. 0.5 ml of [id number] contrast was injected after negative aspiration for blood, and air and negative for paresthesia. Good spread of the contrast into the SI joint has been seen. Then again after negative aspiration of spinal fluid and blood and negative for neurological symptoms, 3 mL of a solution containing total 2.5 mL of 0.5 % preservative-free ropivacaine mixed with 20 mg of Kenalog was injected. Needle was withdrawn intact. The entire procedure was repeated on the left side as above. Needle was withdrawn intact. Skin was cleansed, and bandages were applied. COMPLICATIONS: None. DISPOSITION / PLANS: The patient was placed in a supine position and transferred to the recovery area in a stable condition for observation and was discharged from the recovery room after meeting discharge criteria. Home discharge instructions given to the patient by the staff. The patient was reexamined prior to discharge. The patient will schedule for follow-up visit with the pain clinic in 4 weeks duration.
[2021-09-24] MEDS ORDERED: IV FLUID CONTINUATION 650 ML IV ONE (10:50)
[2021-09-24 11:16] VITALS: BP 145/90; PULSE 62
--- NOTE | 2021-09-24 11:18 | FL ---
EXAMINATION TYPE: FL guided pain mgmt statistic DATE OF EXAM: 09/24/2021 HISTORY: Fluoroscopy time 3 seconds of fluoroscopy provided. IMPRESSION: 1. Fluoroscopy time.
== END 2021-09-24 11:29 | disposition home or self-care (01) ==
LOC: ORPAIN 09:44
DX: G89.29 Other chronic pain (principal); M53.3 Sacrococcygeal disorders, not elsewhere classified; I10 Essential (primary) hypertension; F41.9 Anxiety disorder, unspecified; F32.A Depression, unspecified; M19.90 Unspecified osteoarthritis, unspecified site; M79.7 Fibromyalgia; Z98.890 Other specified postprocedural states; Z98.51 Tubal ligation status; Z79.899 Other long term (current) drug therapy; Z88.8 Allergy status to other drugs, medicaments and biological substances
CPT/HCPCS: 81025; J2250; J3301; J3010; Q9966; J2795; G0260; 99152

== ENCOUNTER → 2021-10-21 | Outpatient (CLI) | payer OTHER ==
[2021-10-21 12:12] VITALS: BP 153/106; PULSE 61; RESP 18
--- NOTE | 2021-10-21 12:39 | P.PN ---
Subjective Progress Note Date: 10/21/21 Principal diagnosis: A 46 yr old female with a history of severe and chronic low back pain secondary to lumbar degenerative disc diseases and lumbar spondylosis with facet arthropathy presents today for follow up of her recent SI joint injection and consideration of a pain stimulator. Pain level is 5-6 /10 in intensity, dull/ achy in the lower part of the lumbar spine where it meets the pelvis, but also sharp/ shooting towards the left hip/groin more than the right. Pain is provoked by various movements. Pain is alleviated with injections, heat, ice, medications, massage, use of a back brace, repositioning and yoga.. Interventional pain procedures completed include SI joint injection on 09/24/21 Patient denies any side effects of the medication(s), denies excessive drowsiness or sleepiness, denies suicidal ideation and reports that the current pain medication is helping to control the pain and improve activities of daily living. Patient denies any motor or sensory deficits. Patient denies any fever or night sweats, denies any change in the bowel movements or urination. Physical Examination: -Constitutional: Cooperative. Not in acute distress . -HEENT: Neck is supple. No lymphadenopathy. No thyromegaly. Normal thyroid size. Eyes: No ptosis , no icterus, no photophobia. ENT: No auditory deficits. Normal oropharynx. No Thrush. - Respiratory: Chest clear to auscultations bilaterally. No wheezing. No rhonchi. - Cardiovascular: Regular rate and rhythm. S1 / S2 , no S3 , no S4. - Gastrointestinal: Abdomen soft no tenderness. Bowel sounds positive in all four quadrants. No organomegaly. - Genitourinary: Deferred. - Neurologic: Cranial nerve II to XII intact. No focal neurological deficits. - Psychatric: Alert & oriented x 3. Matching mood & appropriate affect. Judgment and insight intact. - Lymphatic: No Lymphadenopathy. - Musculoskeletal: Cervical spine: Muscle bulk/ tone/ strength in the bilateral upper extremities normal. Facet loading test cervical area positive. Lumbar spine: Motor bulk/ tone/ strength lower extremities , thigh and legs : 5/5 Deep tendon reflexes : Normal Knee Jerk. Normal Ankle Jerk . Lumbar Facet Loading Test positive Straight Leg Raise: positive at 30 degree right side/ left side Reggie test: positive right side / left side Range of motion: Flexion of the lumbar spine <90 degrees Range of motion: Extension of the lumbar spine <20 degrees Severe tenderness over the Sacroiliac joint: left side greater than right side Assessment and plan: Chronic low back pain secondary to lumbar degenerative disc disease , lumbar spondylosis with facet arthropathy without myelopathy Chronic and current use of high-risk medication (Opioids). L SI joint and R L4-L5 would benefit from trial of a pain stimulator Referral to Dr Cartagena for consultation of pain stimulator Still an option to continue SI joint injections. Discussed that SI joint injections need to be continued in a series, sometimes up to 3, for best pain relief. The patient was counseled about risk of opioid use, psychological risk associated with opioids and was orally counseled to not overuse , divert or sell medications. Pt is to store medication in a safe location. The patient is counseled against driving while using narcotic medications and also not to use alcohol or any illicit recreational drugs. Patient verbalized understanding that the lack of compliance will result in failure to renew narcotic prescription(s) as well as possible discharge from the clinic Diagnoses, prognosis and treatment options including but not limited to physical therapy, surgical interventions, interventional therapies and medication management including narcotics and adjuvant medication were discussed. All patient questions answered MAPS reviewed and it was appropriate. I have spent 31 minutes on patient care today. Dr Villar was available by phone for the evaluation of this patient. The time was used to review the medical records including relevant urine studies and Prescription history (MAPs), review of the available imaging, evaluation and examination of the patient, coordination of care with the medical staff and if applicable referring physicians, as well as creation of the medical record Objective - Vital Signs Vital signs: Vital Signs Temp Pulse 61 10/21/21 11:57 Resp 18 10/21/21 11:57 BP 153/106 10/21/21 11:57 Pulse Ox 96 10/21/21 11:57 PQRS Measure Charge Sheet Mode of Arrival: Ambulatory - Pain Location Lower Back Non-Pharmacological Interventions: Heat, Ice, Massage, Position/Reposition, Stretching Pharmacological Interventions: PRN Medication PQRS Narrative: Smoking Status Former smoker Blood Pressure 153/106 Pain Intensity [Lower Back] 6 Scale Used Numeric (1 - 10) Hx Alcohol Use (MH) No Home Medications: Ambulatory Orders HYDROcodone/APAP 10-325MG [[place] 10-325] 1 tab PO TID 11/01/17 Hydrochlorothiazide [hydroCHLOROthiazide] 12.5 mg PO DAILY PRN 10/23/19 carvediloL [Coreg] 6.25 mg PO BID 01/21/21 Escitalopram [Lexapro] 20 mg PO DAILY 07/26/21 Pregabalin [Lyrica] 75 mg PO BID 07/26/21 QUEtiapine XR [SEROquel XR] 300 mg PO HS 07/26/21 tiZANidine [Zanaflex] 2 mg PO TID PRN 07/26/21
== END ==
LOC: PNWHC3 10:45
PROVIDERS: ATTEND Physician Assistant Medical
DX: M51.36 Other intervertebral disc degeneration, lumbar region (principal); M47.816 Spondylosis without myelopathy or radiculopathy, lumbar region; G89.29 Other chronic pain; Z79.891 Long term (current) use of opiate analgesic; Z87.891 Personal history of nicotine dependence; Z88.8 Allergy status to other drugs, medicaments and biological substances
CPT/HCPCS: 99211

== ENCOUNTER → 2023-03-24 | Outpatient (CLI) | payer OTHER ==
--- NOTE | 2023-03-25 20:14 | MM ---
Reason for Exam: Screening (asymptomatic). Baseline mammogram. Patient History: Menarche at age 14. First Full-Term at age 30. Late child-bearing (after 30). Postmenopausal. Patient has history of breast feeding. Risk Values: [place] 5 year model risk: 1.1%. NCI Lifetime model risk: 11.6%. Prior Study Comparison: Patient's first Mammogram. Tissue Density: There are scattered fibroglandular densities. Findings: Analyzed By CAD. Focal asymmetry central inner upper right breast middle to posterior depth for which further spot compression views are recommended. Otherwise, no significant mass, suspicious microcalcification, or other discrete abnormality is seen. Overall Assessment: Incomplete: need additional imaging evaluation, BI-RAD 0 Management: Special View Mammogram of the right breast. Targeted ultrasound if any persisting abnormality. [facility] will attempt to contact patient to return for supplemental views and ultrasound if indicated. Electronically signed and approved by: Jovani Mendes M.D. Radiologist
== END | disposition home or self-care (01) ==
LOC: RADMAMWWP 12:36
PROVIDERS: ATTEND Family Medicine
DX: Z12.31 Encounter for screening mammogram for malignant neoplasm of breast (principal); Z78.0 Asymptomatic menopausal state
CPT/HCPCS: 77067

== ENCOUNTER → 2023-03-27 | Outpatient (CLI) | payer OTHER ==
--- NOTE | 2023-03-27 15:54 | MM ---
Reason for Exam: Additional evaluation requested from abnormal screening. Last screening mammogram was performed less than 1 month ago. Patient History: Menarche at age 14. First Full-Term at age 30. Late child-bearing (after 30). Postmenopausal. Patient has history of breast feeding. Risk Values: Katelynn 5 year model risk: 1.1%. NCI Lifetime model risk: 11.6%. Tissue Density: Right: The breast tissue is heterogeneously dense. This may lower the sensitivity of mammography. Findings: Analyzed By CAD. Asymmetric density is less conspicuous on spot compression imaging. Precautionary six-month follow-up mammography is advised. Overall Assessment: Probably benign, BI-RAD 3 Management: Diagnostic Mammogram of the right breast in 6 months. . Results were given to the patient verbally at the time of exam. Patient should continue monthly self-breast exams. A clinical breast exam by your physician is recommended on an annual basis. This exam should not preclude additional follow-up of suspicious palpable abnormalities. Note on Katelynn scores and lifetime risk: 1. A Katelynn score greater than 3% is considered moderate risk. If this is the case, consider specialist referral to assess eligibility for a risk reducing agent. 2. If overall lifetime risk for the development of breast cancer is 20% or higher, the patient may qualify for future screening with alternating mammogram and breast MRI. Electronically signed and approved by: Jim Pickard M.D. Radiologis
== END | disposition home or self-care (01) ==
LOC: RADMAMWWP 13:46
PROVIDERS: ATTEND Family Medicine
DX: R92.8 Other abnormal and inconclusive findings on diagnostic imaging of breast (principal); Z78.0 Asymptomatic menopausal state
CPT/HCPCS: 77065; G0279; 77061

== ENCOUNTER 2023-10-20 06:14 | Day surgery (SDC) | payer OTHER ==
[2023-10-20] MEDS ORDERED: LACTATED RINGERS 1,000 ML IV SCH (06:25)
[2023-10-20 07:05] VITALS: RESP 16; TEMP 97.2
[2023-10-20] MEDS ORDERED: LIDOCAINE 1% INJ 10MG/ML (20 ML MDV) ONE (07:26)
[2023-10-20] MEDS ORDERED: PROPOFOL 10 MG/ML 20 ML VIAL IV ONE (07:26)
--- NOTE | 2023-10-20 07:45 | P.PCN ---
Date of Procedure: 10/20/23 Procedure(s) Performed: Brief history: Patient is a pleasant s 48-year-old white female cheduled for an elective upper endoscopy as well as colonoscopy as a part of evaluation of GERD/change in bowel habits. Procedure performed: Esophagogastroduodenoscopy with biopsy Colonoscopy Preoperative diagnosis: GERD Change in bowel habits Anesthesia: MAC Procedure: After informed consent was obtained from the patient was brought into the endoscopy unit and IV sedation was administered by anesthesia under continuous monitoring. Initially upper endoscopy was done. The Olympus GF 160 video endoscope was inserted inserted into the mouth and esophagus intubated without any difficulty and was gradually advanced into the stomach and duodenum and carefully examined. The bulb and second part of the duodenum appeared normal. The scope was then withdrawn into the stomach adequately insufflated with air an d upon careful examination the antrum scattered erosions and biopsies were done from this area. Mucosa of the body, cardia and fundus appeared normal. The scope was then withdrawn into the esophagus. small hiatal hernia noted. The GE junction was located at 36 cm to the incisors. It appeared regular witha small island of Douglas's appearing mucosa just proximal to the GE junction which was biopsied. Also there were 2 erosions in the distal esophagus consistent with LA grade B reflux esophagitis.est of the esophagus appeared normal. Patient tolerated the procedure well. At this time the patient continued to remain sedation. Initial digital rectal examination was normal. Olympus CF 160 video colonoscope was then inserted into the rectum and gradually advanced to the cecum without any difficulty. Careful examination was performed as the scope was gradually being withdrawn. The prep was excellent. The cecum, ascending colon, transverse colon, descending colon, sigmoid colon and rectum appeared normal. Retroflexion was performed in the rectum and no lesions were noted. added sigmoid diverticulosis. Patient tolerated the procedure well. Impression: 1. Upper endoscopy revealed mild antral gastritis, small hiatal hernia and LA grade B reflux esophagitis 2. Colonoscopy revealed scattered sigmoid diverticula cyst but no was of colorectal neoplasia Recommendations: Findings of this examination were discussed with the patient as well as a family. She was advised to start omeprazole 20 mg daily and follow antireflux measures. recommend a high-fiber diet. Repeat screening colonoscopy in 10 years.
[2023-10-20 08:16] VITALS: BP 149/92; PULSE 71
== END 2023-10-20 08:22 | disposition home or self-care (01) ==
LOC: ORWHC2ENDO 06:14
PROVIDERS: ATTEND Internal Medicine Gastroenterology
DX: K21.00 Gastro-esophageal reflux disease with esophagitis, without bleeding (principal); K29.50 Unspecified chronic gastritis without bleeding; K44.9 Diaphragmatic hernia without obstruction or gangrene; K57.30 Diverticulosis of large intestine without perforation or abscess without bleeding; R19.4 Change in bowel habit; I10 Essential (primary) hypertension; M79.7 Fibromyalgia; M19.90 Unspecified osteoarthritis, unspecified site; G43.909 Migraine, unspecified, not intractable, without status migrainosus; F90.9 Attention-deficit hyperactivity disorder, unspecified type; F41.9 Anxiety disorder, unspecified; F31.9 Bipolar disorder, unspecified; Z88.8 Allergy status to other drugs, medicaments and biological substances; Z79.899 Other long term (current) drug therapy; Z98.890 Other specified postprocedural states
CPT/HCPCS: 45378; 88305; 43239; J2001; J2704

== ENCOUNTER → 2024-04-11 | Outpatient (CLI) | payer OTHER ==
[2024-04-11 21:40] LABS: Estradiol 26.8 pg/mL; Testosterone <10.00 ng/dL (9.01-47.94)
[2024-04-11 22:49] LABS: Follicle Stimulating Hormone 42.2 mIU/mL
== END | disposition home or self-care (01) ==
LOC: LABWHC1 16:02
PROVIDERS: ATTEND Obstetrics & Gynecology
DX: N95.1 Menopausal and female climacteric states (principal)
CPT/HCPCS: 36415; 82670; 83001; 83002; 84144; 84402; 84403

== ENCOUNTER → 2024-04-19 | Outpatient (CLI) | payer OTHER ==
[2024-04-19 13:27] VITALS: BP 148/95; PULSE 72; RESP 16; TEMP 98.2
--- NOTE | 2024-04-19 14:29 | P.SLEEP ---
History of Present Illness H&P Date: 04/19/24 The patient is currently living with her fielizabeth who has obstructive sleep apnea and her fianc has noted that she snores on a few occasions she has woken up with a choking sensation. She has chronic fatigue with limited major events. Her current [place] score is at 3. He has lost weight in the order of 30 pounds over the past 5 to 10 years. She wakes up tired during the day. On a separate note, the patient has multiple medical problems and comorbidities. She has issues with chronic menopause and she has been started on hormone replacement therapy. She suffers from chronic anxiety and bipolar disorder and ADHD. She is currently on a combination of buspirone and Seroquel 200 mg at bedtime. She has issues with chronic pain as the patient has undergone Previous cervical spine surgery with fusion and the patient is maintained on a combination of Pelham and gabapentin. The patient has also scoliosis. Another issue is stress urinary incontinence with occasional nighttime arousals for urination. She has undergone bladder suspension surgery. No sleep paralysis. No hallucinations. No cataplexy. No grinding of the teeth. No sleepwalking or sleep talking. She is a mouth breather and she sleeps on her side. No reported night terrors. No restlessness in lower extremities. She goes to bed around midnight and she gets out of bed at around 10 AM in the morning. 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 No history of substance abuse. No alcoholism. No head trauma. No seizure disorder. Review of Systems A 14 point review of system was done and the positive findings are mentioned above history of present illness. Past Medical History Past Medical History: Fibromyalgia, GERD/Reflux, Hypertension, Musculoskeletal Disorder, Osteoarthritis (OA) Additional Past Medical History / Comment(s): Chronic back pain, Scoliosis, Migraines, Colitis. esophageal pain, change in BM. Menopause, hypertension, chronic anxiety, chronic bipolar disorder, ADHD, scoliosis, cervical spine fusion, stress urinary incontinence, plantar fasciitis History of Any Multi-Drug Resistant Organisms: None Reported Past Surgical History: Bladder Surgery, Orthopedic Surgery, Tubal Ligation Additional Past Surgical History / Comment(s): Cervical fusion, left knee arthroscopy, colonoscopy, bladder suspension, lower back nerve ending surgery, pain clinic procedures. Past Anesthesia/Blood Transfusion Reactions: No Reported Reaction Additional Past Anesthesia/Blood Transfusion Reaction / Comment(s): Father has PONV. Past Psychological History: ADD/ADHD, Anxiety, Bipolar Additional Psychological History / Comment(s): ADD. Smoking Status: Former smoker Past Alcohol Use History: Occasional Additional Past Alcohol Use History / Comment(s): STARTED SMOKING AT AGE 10, QUIT AT AGE 43. Past Drug Use History: None Reported Additional Drug Use History / Comment(s): . - Past Family History Father Family Medical History: Cancer, Fibromyalgia, Hypertension, Osteoarthritis (OA), Sleep Apnea/CPAP/BIPAP Additional Family Medical History / Comment(s): Prostate cancer. snoring, mental illness Mother Family Medical History: Rheumatoid Arthritis (RA) Medications and Allergies Home Medications Medication Instructions Recorded Confirmed Type HYDROcodone/APAP 10-325MG [Pelham 1 tab PO TID PRN 11/01/17 04/19/24 History 10-325] hydroCHLOROthiazide 25 mg PO DAILY PRN 10/23/19 04/19/24 History carvediloL [Coreg] 6.25 mg PO BID 01/21/21 04/19/24 History Escitalopram [Lexapro] 20 mg PO DAILY 07/26/21 04/19/24 History Pregabalin [Lyrica] 75 mg PO BID 07/26/21 04/19/24 History QUEtiapine XR [SEROquel XR] 300 mg PO HS 07/26/21 04/19/24 History tiZANidine [Zanaflex] 2 mg PO TID PRN 07/26/21 10/20/23 History Aspirin EC [Ecotrin Low Dose] 81 mg PO DAILY 10/13/23 04/19/24 History amLODIPine [Norvasc] 5 mg PO DAILY 10/20/23 04/19/24 History Estrogens, Conjugated [Premarin] 0.3 mg PO DAILY 04/19/24 04/19/24 History Progesterone, Micronized 100 mg PO DAILY 04/19/24 04/19/24 History [Progesterone] Allergies Allergy/AdvReac Type Severity Reaction Status Date / Time lisinopril Allergy Anaphylaxis Verified 10/20/23 06:41 Physical Exam Vitals: Vital Signs Temp Pulse Resp BP Pulse Ox 04/19/24 13:24 98.2 F 72 16 148/95 98 Intake and Output 04/18/24 04/19/24 04/19/24 22:59 06:59 14:59 Other: Weight 80.739 kg On exam the patient appeared well nourished and normally developed. Vital signs as documented. Head exam is unremarkable. No scleral icterus or corneal arcus noted. Neck is without jugular venous distension, thyromegaly, or carotid bruits. Carotid upstrokes are brisk bilaterally. The patient has a Mallampati class II. Lungs are clear to auscultation and percussion. Cardiac exam reveals the PMI to be normally sized and situated. Rhythm is regular. First and second heart sounds normal. No murmurs, rubs or gallops. Abdominal exam reveals normal bowel sounds, no masses, no organomegaly and no aortic enlargement. Extremities are nonedematous and both femoral and pedal pulses are normal. Examination of the skin revealed no evidence of significant rashes, suspicious appearing nevi or other concerning lesions. Neurologically, the patient is awake and alert and the patient does not have any focal neurological deficit. Cranial nerves are essentially intact. Assessment and Plan Plan: Chronic fatigue, limited sleepiness, [place] score of 3, low probability for ongoing sleep breathing disorder. Symptoms are likely related to comorbidities Fibromyalgia Chronic pain Menopause currently on hormone replacement therapy Hypertension Chronic anxiety and bipolar disorder History of ADHD History of scoliosis History of cervical spine disease and the patient has undergone previous cervical spine fusion and she is looking forward for another surgery Stress urinary incontinence and the patient has undergone bladder suspension surgery Plantar fasciitis Plan Patient has been maintained on a combination of BuSpar and Seroquel. Both medications will be continued for now. Continue pain management with a combination of Pelham and gabapentin Patient is going to undergo another cervical spine surgery, with fusion this will be done at [facility] Will do a screening polysomnography to evaluate for any underlying sleep breathing disorder. This will be a good opportunity also to evaluate the patient's sleep architecture and decide if there is any further intervention that can be offered to this patient to improve her sleep quality and daytime symptoms of fatigue. My overall impression is consistent with multiple comorbid conditions affecting the patient's sleep quality and some drug-induced daytime fatigue Maintain regular sleep schedule Maintain good sleep hygiene measures Encouraged further weight loss Will continue to follow Sleep Note - Sleep Data ESS Total: 3 - Sleep Note Sleep Note: Temperature: 98.2 F Pulse Rate: 72 Respiratory Rate: 16 Blood Pressure: 148/95 SpO2: 98 Height: 5 ft 6 in Weight: 80.739 kg BMI: Neck Circumference: 14
== END ==
LOC: 3 N SLEEP 13:03
PROVIDERS: ATTEND Internal Medicine Critical Care Medicine
DX: R53.82 Chronic fatigue, unspecified (principal); M79.7 Fibromyalgia; G89.29 Other chronic pain; I10 Essential (primary) hypertension; N39.3 Stress incontinence (female) (male); F41.9 Anxiety disorder, unspecified; M72.2 Plantar fascial fibromatosis; F31.9 Bipolar disorder, unspecified; Z86.59 Personal history of other mental and behavioral disorders; Z87.39 Personal history of other diseases of the musculoskeletal system and connective tissue; Z98.1 Arthrodesis status; Z78.0 Asymptomatic menopausal state; Z79.890 Hormone replacement therapy; Z88.8 Allergy status to other drugs, medicaments and biological substances; Z79.899 Other long term (current) drug therapy; Z87.891 Personal history of nicotine dependence
CPT/HCPCS: 99211